=== PATIENT | female | born 1995 | race African-American/Black ===

== ENCOUNTER 2016-08-01 15:40 | Emergency (ER) | payer OTHER ==
--- NOTE | 2016-08-01 17:36 | XR ---
EXAMINATION TYPE: XR chest 2V DATE OF EXAM: 08/01/2016 5:30 PM COMPARISON: 06/06/2012 HISTORY: Chest congestion TECHNIQUE: Frontal and lateral views of the chest are obtained. FINDINGS: Heart and mediastinum are normal. Lungs are clear. Diaphragm is normal. Bony thorax is int act. IMPRESSION: Normal chest. No change.
--- NOTE | 2016-08-01 17:53 | ED ---
URI HPI - General Chief Complaint: Upper Respiratory Infection Stated Complaint: chest congestion coughing Time Seen by Provider: 08/01/16 17:08 Source: patient, RN notes reviewed Mode of arrival: ambulatory Limitations: no limitations - History of Present Illness Initial Comments: 20-year-old female presents emergency Department with chief complaint of cough and congestion or last 4 days. Patient states she just does not feel well. States her cough is slightly productive but mostly dry. She states she aches all over and has had subjective fevers chills. 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 - Related Data Home Medications Medication Instructions Recorded Confirmed No Known Home Medications [No 01/23/16 08/01/16 Known Home Medications] Allergies Allergy/AdvReac Type Severity Reaction Status Date / Time clarithromycin [From Biaxin] AdvReac Vomiting Verified 08/01/16 16:20 Review of Systems ROS Statement: Those systems with pertinent positive or pertinent negative responses have been documented in the HPI. ROS Other: All systems not noted in ROS Statement are negative. Past Medical History Past Medical History: Asthma Additional Past Medical History / Comment(s): ovarian cysts History of Any Multi-Drug Resistant Organisms: None Reported Past Surgical History: Appendectomy Past Psychological History: Anxiety, Depression Smoking Status: Never smoker Past Alcohol Use History: Occasional Past Drug Use History: None Reported General Exam Limitations: no limitations General appearance: alert, in no apparent distress Head exam: Present: atraumatic, normocephalic, normal inspection Eye exam: Present: normal appearance, PERRL, EOMI. Absent: scleral icterus, conjunctival injection, periorbital swelling ENT exam: Present: normal exam, normal oropharynx, mucous membranes moist, TM's normal bilaterally, normal external ear exam Neck exam: Present: normal inspection, full ROM. Absent: tenderness, meningismus, lymphadenopathy Respiratory exam: Present: normal lung sounds bilaterally. Absent: respiratory distress, wheezes, rales, rhonchi, stridor Cardiovascular Exam: Present: regular rate, normal rhythm, normal heart sounds. Absent: systolic murmur, diastolic murmur, rubs, gallop, clicks Course Vital Signs 08/01/16 08/01/16 16:17 17:26 Temperature 98.3 F Pulse Rate 91 Respiratory 18 20 Rate Blood Pressure 116/57 O2 Sat by Pulse 99 Oximetry Medical Decision Making - Medical Decision Making 20-year-old female presented for cough and congestion. Patient has influenza. Patient's symptoms have been present greater than 48 hours no Tamiflu. Return parameters were discussed. - Lab Data Lab Results 08/01/16 Range/Units 17:15 Influenza Type A RNA Not Detected (Not Detectd) Influenza Type B (PCR) Detected H (Not Detectd) Disposition Clinical Impression: Influenza Disposition: HOME SELF-CARE Condition: Stable Instructions: Influenza (ED) Additional Instructions: Please return to the Emergency Department if symptoms worsen or any other concerns. Referrals: Bebo Christie MD [Primary Care Provider] - 1-2 days Time of Disposition: 17:53
[2016-08-01 18:09] VITALS: BP 120/60; PULSE 70; RESP 16; TEMP 97.8
== END 2016-08-01 18:08 | disposition home or self-care (01) ==
LOC: EC 15:40
DX: J11.1 Influenza due to unidentified influenza virus with other respiratory manifestations (principal); Z88.1 Allergy status to other antibiotic agents
CPT/HCPCS: 71020; 87502; 99283

== ENCOUNTER → 2017-03-29 | Outpatient (CLI) | payer OTHER | LOC: CPPFTMAIN 13:10 | PROVIDERS: ATTEND Family Medicine | DX: J45.30 Mild persistent asthma, uncomplicated (principal) | CPT/HCPCS: 94060; 94726; 94729 ==

== ENCOUNTER 2017-05-11 19:25 | Emergency (ER) | payer OTHER ==
[2017-05-11] MEDS ORDERED: SODIUM CHLORIDE 0.9% 1,000 ML IV ONE (21:09)
--- NOTE | 2017-05-11 21:19 | ED ---
General Adult HPI - General Chief complaint: Recheck/Abnormal Lab/Rx Stated complaint: asthma problems/vomiting/confusion Time Seen by Provider: 05/11/17 20:57 Source: patient Mode of arrival: ambulatory Limitations: no limitations - History of Present Illness Initial comments: 21-year-old woman who presents to be evaluated for disorientation and confusion. The patient came home from work today, she works as a teacher, and her partner felt she was more fatigued than usual, and then in the course of talking she was not able to state the president's name. The patient does note that she had a few episodes of vomiting while at school. She states that she feels very fatigued and that she is a little bit sluggish. She denies any specific pains. She denies dyspnea. She does have a bit of a cough, but states this is been going on for few days. In addition she had an episode of bronchitis nearly 2 weeks ago and had a course of prednisone and is still taking the promethazine cough syrup. -: days(s) Improves with: none Worsens with: none Associated Symptoms: cough, malaise, nausea/vomiting Treatments Prior to Arrival: none - Related Data Home Medications Medication Instructions Recorded Confirmed Phenylephrine HCl/Prometh HCl 5 ml PO DAILY PRN 05/11/17 05/11/17 [Promethazine Vc Syrup] Allergies Allergy/AdvReac Type Severity Reaction Status Date / Time clarithromycin [From Biaxin] AdvReac Vomiting Verified 05/11/17 20:41 Review of Systems ROS Statement: Those systems with pertinent positive or pertinent negative responses have been documented in the HPI. ROS Other: All systems not noted in ROS Statement are negative. Constitutional: Reports: weakness. Denies: fever, chills Eyes: Denies: vision change Respiratory: Reports: cough. Denies: dyspnea, hemoptysis Cardiovascular: Denies: chest pain, palpitations, dyspnea on exertion, orthopnea , edema, syncope Gastrointestinal: Reports: nausea, vomiting. Denies: abdominal pain, diarrhea, melena, hematochezia Genitourinary: Denies: dysuria, hematuria, abnormal menses Musculoskeletal: Denies: back pain Skin: Denies: rash Neurological: Reports: confusion. Denies: headache, weakness, numbness Past Medical History Past Medical History: Asthma Additional Past Medical History / Comment(s): ovarian cysts History of Any Multi-Drug Resistant Organisms: None Reported Past Surgical History: Appendectomy Past Psychological History: Anxiety, Depression Smoking Status: Never smoker Past Alcohol Use History: Occasional Past Drug Use History: None Reported General Exam Limitations: no limitations General appearance: alert, in no apparent distress, obese Head exam: Present: atraumatic, normocephalic Eye exam: Present: normal appearance. Absent: scleral icterus, conjunctival injection ENT exam: Present: mucous membranes dry Neck exam: Present: normal inspection Respiratory exam: Present: normal lung sounds bilaterally. Absent: respiratory distress, wheezes, rales, rhonchi, stridor Cardiovascular Exam: Present: regular rate, normal rhythm, normal heart sounds. Absent: systolic murmur, diastolic murmur, rubs, gallop GI/Abdominal exam: Present: soft. Absent: distended, tenderness, guarding, rebound, rigid, mass Extremities exam: Present: normal inspection, normal capillary refill. Absent: pedal edema, calf tenderness Back exam: Present: normal inspection. Absent: CVA tenderness (R), CVA tenderness (L) Neurological exam: Present: alert, oriented X3, CN II-XII intact. Absent: motor sensory deficit Skin exam: Present: warm, dry, intact, normal color. Absent: rash Course Vital Signs 05/11/17 05/11/17 05/11/17 19:36 21:03 23:38 Temperature 97.9 F 97.3 F L Pulse Rate 94 66 70 Respiratory 20 20 18 Rate Blood Pressure 130/84 136/77 127/72 O2 Sat by Pulse 99 98 97 Oximetry 05/12/17 01:19 Temperature 97.5 F L Pulse Rate 81 Respiratory 18 Rate Blood Pressure 125/66 O2 Sat by Pulse 96 Oximetry EKG Findings - EKG Results: EKG: interpreted by RODNEY CUEVA, sinus rhythm (Rate approximate 72 bpm), normal axis, normal QRS, normal ST/T, no acute changes - [place], Pacemaker, Normal: Normal tracing: normal tracing Medical Decision Making - Medical Decision Making Patient is 21-year-old woman presenting with symptoms suggestive of viral syndrome. She does feel better following some IV fluids. Family states that she is at her baseline. Discussed the lab results as well as appropriate follow -up and further care related to the elevated transaminase levels. Discussed appropriate return parameters. - Lab Data Result diagrams: 05/11/17 21:45 01/24/18 21:45 Lab Results 05/11/17 05/11/17 05/11/17 Range/Units 21:38 21:45 21:45 WBC 10.4 (3.8-10.6) k/uL RBC 5.02 (3.80-5.40) m/uL Hgb 13.3 (11.4-16.0) gm/dL Hct 41.2 (34.0-46.0) % MCV 82.1 (80.0-100.0) fL MCH 26.5 (25.0-35.0) pg MCHC 32.3 (31.0-37.0) g/dL RDW 15.5 (11.5-15.5) % Plt Count 286 (150-450) k/uL Neutrophils % 73 % Lymphocytes % 23 % Monocytes % 2 % Eosinophils % 1 % Basophils % 1 % Neutrophils # 7.5 (1.3-7.7) k/uL Lymphocytes # 2.4 (1.0-4.8) k/uL Monocytes # 0.2 (0-1.0) k/uL Eosinophils # 0.1 (0-0.7) k/uL Basophils # 0.1 (0-0.2) k/uL PT (9.0-12.0) sec INR (<1.2) APTT (22.0-30.0) sec Sodium (137-145) mmol/L Potassium (3.5-5.1) mmol/L Chloride (98-107) mmol/L Carbon Dioxide (22-30) mmol/L Anion Gap mmol/L BUN (7-17) mg/dL Creatinine (0.52-1.04) mg/dL Est GFR (MDRD) Af Amer (>60 ml/min/1.73 sqM) Est GFR (MDRD) Non-Af (>60 ml/min/1.73 sqM) Glucose (74-99) mg/dL POC Glucose (mg/dL) 123 H (75-99) mg/dL POC Glu Pearl Diver ID Arenleah Oj Plasma Lactic Acid Raman (0.7-2.0) mmol/L Calcium (8.4-10.2) mg/dL Total Bilirubin (0.2-1.3) mg/dL AST (14-36) U/L ALT (9-52) U/L Alkaline Phosphatase (38-126) U/L Total Creatine Kinase 88 (30-135) U/L CK-MB (CK-2) 0.3 (0.0-2.4) ng/mL CK-MB (CK-2) Rel Index 0.3 Troponin I <0.012 (0.000-0.034) ng/mL Total Protein (6.3-8.2) g/dL Albumin (3.5-5.0) g/dL TSH (0.465-4.680) mIU/L Urine Color Urine Appearance (Clear) Urine pH (5.0-8.0) Ur Specific [place] (1.001-1.035) Urine Protein (Negative) Urine Glucose (UA) (Negative) Urine Ketones (Negative) Urine Blood (Negative) Urine Nitrite (Negative) Urine Bilirubin (Negative) Urine Urobilinogen (<2.0) mg/dL Ur Leukocyte Esterase (Negative) Urine RBC (0-5) /hpf Urine WBC (0-5) /hpf Ur Squamous Epith Cells (0-4) /hpf Amorphous Sediment (None) /hpf Urine Bacteria (None) /hpf Urine HCG, Qual (Not Detectd) Urine Opiates Screen (NotDetected) Ur Oxycodone Screen (NotDetected) Urine Methadone Screen (NotDetected) Ur Propoxyphene Screen (NotDetected) Ur Barbiturates Screen (NotDetected) U Tricyclic Antidepress (NotDetected) Ur Phencyclidine Scrn (NotDetected) Ur Amphetamines Screen (NotDetected) U Methamphetamines Scrn (NotDetected) U Benzodiazepines Scrn (NotDetected) Urine Cocaine Screen (NotDetected) U Marijuana (THC) Screen (NotDetected) 05/11/17 05/11/17 05/11/17 Range/Units 21:45 21:45 21:45 WBC (3.8-10.6) k/uL RBC (3.80-5.40) m/uL Hgb (11.4-16.0) gm/dL Hct (34.0-46.0) % MCV (80.0-100.0) fL MCH (25.0-35.0) pg MCHC (31.0-37.0) g/dL RDW (11.5-15.5) % Plt Count (150-450) k/uL Neutrophils % % Lymphocytes % % Monocytes % % Eosinophils % % Basophils % % Neutrophils # (1.3-7.7) k/uL Lymphocytes # (1.0-4.8) k/uL Monocytes # (0-1.0) k/uL Eosinophils # (0-0.7) k/uL Basophils # (0-0.2) k/uL PT 9.7 (9.0-12.0) sec INR 1.0 (<1.2) APTT 22.3 (22.0-30.0) sec Sodium 140 (137-145) mmol/L Potassium 4.5 (3.5-5.1) mmol/L Chloride 103 (98-107) mmol/L Carbon Dioxide 26 (22-30) mmol/L Anion Gap 11 mmol/L BUN 11 (7-17) mg/dL Creatinine 0.70 (0.52-1.04) mg/dL Est GFR (MDRD) Af Amer >60 (>60 ml/min/1.73 sqM) Est GFR (MDRD) Non-Af >60 (>60 ml/min/1.73 sqM) Glucose 130 H (74-99) mg/dL POC Glucose (mg/dL) (75-99) mg/dL POC Glu Pearl Diver ID Plasma Lactic Acid Raman 1.2 (0.7-2.0) mmol/L Calcium 9.9 (8.4-10.2) mg/dL Total Bilirubin 0.3 (0.2-1.3) mg/dL AST 39 H (14-36) U/L ALT 95 H (9-52) U/L Alkaline Phosphatase 72 (38-126) U/L Total Creatine Kinase (30-135) U/L CK-MB (CK-2) (0.0-2.4) ng/mL CK-MB (CK-2) Rel Index Troponin I (0.000-0.034) ng/mL Total Protein 7.4 (6.3-8.2) g/dL Albumin 4.3 (3.5-5.0) g/dL TSH (0.465-4.680) mIU/L Urine Color Urine Appearance (Clear) Urine pH (5.0-8.0) Ur Specific [place] (1.001-1.035) Urine Protein (Negative) Urine Glucose (UA) (Negative) Urine Ketones (Negative) Urine Blood (Negative) Urine Nitrite (Negative) Urine Bilirubin (Negative) Urine Urobilinogen (<2.0) mg/dL Ur Leukocyte Esterase (Negative) Urine RBC (0-5) /hpf Urine WBC (0-5) /hpf Ur Squamous Epith Cells (0-4) /hpf Amorphous Sediment (None) /hpf Urine Bacteria (None) /hpf Urine HCG, Qual (Not Detectd) Urine Opiates Screen (NotDetected) Ur Oxycodone Screen (NotDetected) Urine Methadone Screen (NotDetected) Ur Propoxyphene Screen (NotDetected) Ur Barbiturates Screen (NotDetected) U Tricyclic Antidepress (NotDetected) Ur Phencyclidine Scrn (NotDetected) Ur Amphetamines Screen (NotDetected) U Methamphetamines Scrn (NotDetected) U Benzodiazepines Scrn (NotDetected) Urine Cocaine Screen (NotDetected) U Marijuana (THC) Screen (NotDetected) 05/11/17 05/11/17 05/11/17 Range/Units 21:45 21:45 22:40 WBC (3.8-10.6) k/uL RBC (3.80-5.40) m/uL Hgb (11.4-16.0) gm/dL Hct (34.0-46.0) % MCV (80.0-100.0) fL MCH (25.0-35.0) pg MCHC (31.0-37.0) g/dL RDW (11.5-15.5) % Plt Count (150-450) k/uL Neutrophils % % Lymphocytes % % Monocytes % % Eosinophils % % Basophils % % Neutrophils # (1.3-7.7) k/uL Lymphocytes # (1.0-4.8) k/uL Monocytes # (0-1.0) k/uL Eosinophils # (0-0.7) k/uL Basophils # (0-0.2) k/uL PT (9.0-12.0) sec INR (<1.2) APTT (22.0-30.0) sec Sodium (137-145) mmol/L Potassium (3.5-5.1) mmol/L Chloride (98-107) mmol/L Carbon Dioxide (22-30) mmol/L Anion Gap mmol/L BUN (7-17) mg/dL Creatinine (0.52-1.04) mg/dL Est GFR (MDRD) Af Amer (>60 ml/min/1.73 sqM) Est GFR (MDRD) Non-Af (>60 ml/min/1.73 sqM) Glucose (74-99) mg/dL POC Glucose (mg/dL) (75-99) mg/dL POC Glu Pearl Diver ID Plasma Lactic Acid Raman (0.7-2.0) mmol/L Calcium (8.4-10.2) mg/dL Total Bilirubin (0.2-1.3) mg/dL AST (14-36) U/L ALT (9-52) U/L Alkaline Phosphatase (38-126) U/L Total Creatine Kinase (30-135) U/L CK-MB (CK-2) (0.0-2.4) ng/mL CK-MB (CK-2) Rel Index Troponin I (0.000-0.034) ng/mL Total Protein (6.3-8.2) g/dL Albumin (3.5-5.0) g/dL TSH 1.720 (0.465-4.680) mIU/L Urine Color Light Yellow Urine Appearance Clear (Clear) Urine pH 7.5 (5.0-8.0) Ur Specific [place] 1.005 (1.001-1.035) Urine Protein Negative (Negative) Urine Glucose (UA) Negative (Negative) Urine Ketones Negative (Negative) Urine Blood Negative (Negative) Urine Nitrite Negative (Negative) Urine Bilirubin Negative (Negative) Urine Urobilinogen <2.0 (<2.0) mg/dL Ur Leukocyte Esterase Trace H (Negative) Urine RBC <1 (0-5) /hpf Urine WBC 1 (0-5) /hpf Ur Squamous Epith Cells 1 (0-4) /hpf Amorphous Sediment Rare H (None) /hpf Urine Bacteria Rare H (None) /hpf Urine HCG, Qual Not Detected (Not Detectd) Urine Opiates Screen Not Detected (NotDetected) Ur Oxycodone Screen Not Detected (NotDetected) Urine Methadone Screen Not Detected (NotDetected) Ur Propoxyphene Screen Not Detected (NotDetected) Ur Barbiturates Screen Not Detected (NotDetected) U Tricyclic Antidepress Not Detected (NotDetected) Ur Phencyclidine Scrn Not Detected (NotDetected) Ur Amphetamines Screen Not Detected (NotDetected) U Methamphetamines Scrn Not Detected (NotDetected) U Benzodiazepines Scrn Not Detected (NotDetected) Urine Cocaine Screen Not Detected (NotDetected) U Marijuana (THC) Screen Not Detected (NotDetected) Disposition Clinical Impression: Viral syndrome, Delirium, Elevated transaminase measurement Disposition: HOME SELF-CARE Condition: Good Instructions: Acute Delirium (ED), Viral Syndrome (ED) Additional Instructions: As discussed, follow-up to have the transaminase levels rechecked. Referrals: Allegra Moe MD [Primary Care Provider] - 1-2 days Denise East MD [STAFF PHYSICIAN] - 1-2 days
[2017-05-11 21:57] LABS: Glucose,Whole Blood 123 mg/dL (75-99)
[2017-05-11 22:02] LABS: Basophils # (A) 0.1 k/uL (0-0.2); Basophils % (A) 1 %; Eosinophils # (A) 0.1 k/uL (0-0.7); Eosinophils % (A) 1 %; HCT 41.2 % (34.0-46.0); HGB 13.3 gm/dL (11.4-16.0); Lymphocytes # (A) 2.4 k/uL (1.0-4.8); Lymphocytes % (A) 23 %; MCH 26.5 pg (25.0-35.0); MCHC 32.3 g/dL (31.0-37.0); MCV 82.1 fL (80.0-100.0); Mean Platelet Volume 7.8; Monocytes # (A) 0.2 k/uL (0-1.0); Monocytes % (A) 2 %; Neutrophils # (A) 7.5 k/uL (1.3-7.7); Neutrophils % (A) 73 %; Platelet Count 286 k/uL (150-450); RBC 5.02 m/uL (3.80-5.40); RDW 15.5 % (11.5-15.5); WBC 10.4 k/uL (3.8-10.6)
[2017-05-11 22:12] LABS: Prothrombin Time 9.7 sec (9.0-12.0)
[2017-05-11 22:14] LABS: ALT 95 U/L (9-52); AST 39 U/L (14-36); Albumin 4.3 g/dL (3.5-5.0); Alkaline Phosphatase 72 U/L (38-126); Anion Gap 11 mmol/L; Blood Urea Nitrogen 11 mg/dL (7-17); Calcium 9.9 mg/dL (8.4-10.2); Carbon Dioxide 26 mmol/L (22-30); Chloride 103 mmol/L (98-107); Glucose 130 mg/dL (74-99); Sodium 140 mmol/L (137-145); Total Bilirubin 0.3 mg/dL (0.2-1.3); Total Protein 7.4 g/dL (6.3-8.2)
[2017-05-11 22:19] LABS: Partial Thromboplastin Time 22.3 sec (22.0-30.0)
--- NOTE | 2017-05-11 22:22 | XR ---
EXAMINATION: XR chest 1V portable DATE AND TIME: 05/11/2017 10:09 PM ORDERING PROVIDER: Sulaiman Wild MD CLINICAL INDICATION: altered mental status TECHNIQUE: Frontal COMPARISON: 08/01/2016 DESCRIPTION: The lungs are clear. The pleural spaces are negative. The cardiac silhouette is not enlarged. The mediastinal and pleural silhouettes are unremarkable. The skeletal structures are intact without focal findings. The soft tissues are unremarkable. IMPRESSION: NO ACUTE PROCESS.
[2017-05-11 22:30] LABS: Potassium 4.5 mmol/L (3.5-5.1)
[2017-05-11 22:34] LABS: Creatine Kinase 88 U/L (30-135)
[2017-05-11 22:47] LABS: Creatine Kinase MB 0.3 ng/mL (0.0-2.4); Troponin I <0.012 ng/mL (0.000-0.034)
[2017-05-11 22:58] LABS: Amorphous Sediment,Urine Rare /hpf; Appearance,Urine Clear (Clear); Bacteria,Urine Rare /hpf; Bilirubin,Urine Negative (Negative); Blood,Urine Negative (Negative); Color,Urine Light Yellow; Glucose,Urine (UA) Negative (Negative); Ketones,Urine Negative (Negative); Leukocyte Esterase,Urine Trace (Negative); Nitrite,Urine Negative (Negative); PH, Urine 7.5 (5.0-8.0); Protein,Urine Negative (Negative); RBC,Urine <1 /hpf (0-5); Specific Gravity,Urine 1.005 (1.001-1.035); Squamous Epithelial Cell,Urine 1 /hpf (0-4); Urobilinogen,Urine <2.0 mg/dL (<2.0); WBC,Urine 1 /hpf (0-5)
[2017-05-11 23:07] LABS: Amphetamine Screen,Urine Not Detected (NotDetected); Barbiturate Screen,Urine Not Detected (NotDetected); Benzodiazepines Screen,Urine Not Detected (NotDetected); Cocaine Screen,Urine Not Detected (NotDetected); Methadone Screen, Urine Not Detected (NotDetected); Opiate Screen,Urine Not Detected (NotDetected); Oxycodone Screen, Urine Not Detected (NotDetected); Phencyclidine Screen,Urine Not Detected (NotDetected); Tricyclic Antidepressant,Urine Not Detected (NotDetected); Urn Cannabinoid Scrn Not Detected (NotDetected)
--- NOTE | 2017-05-11 23:33 | CT ---
EXAM: CT Head Without Intravenous Contrast CLINICAL HISTORY: Reason: Pain TECHNIQUE: Axial computed tomography images of the head/brain without intravenous contrast. CTDI is 60.30 mGy and DLP is 1072.30 mGy-cm. This CT exam was performed using one or more of the following dose reduction techniques: automated exposure control, adjustment of the mA and/or kV according to patient size, and/or use of iterative reconstruction technique. COMPARISON: No relevant prior studies available. FINDINGS: Brain: Unremarkable. No hemorrhage. No significant white matter disease. No edema. Ventricles: Unremarkable. No ventriculomegaly. Bones/joints: Opacification of the right maxillary sinus. Partial visualization of a bony septum in the right maxillary sinus which may be an old fracture deformity. Soft tissues: Unremarkable. Sinuses: Unremarkable as visualized. No acute sinusitis. Mastoid air cells: Unremarkable as visualized. No mastoid effusion. IMPRESSION: No acute intracranial process. Left maxillary sinusitis noted. Correlate clinically for history of old maxillary trauma.
[2017-05-11 23:40] VITALS: RESP 18
[2017-05-12 01:21] VITALS: BP 125/66; PULSE 81; TEMP 97.5
== END 2017-05-12 01:21 | disposition home or self-care (01) ==
LOC: EC 19:25
DX: B34.9 Viral infection, unspecified (principal); R41.0 Disorientation, unspecified; R74.0 Nonspecific elevation of levels of transaminase and lactic acid dehydrogenase [LDH]; E66.9 Obesity, unspecified; Z68.43 Body mass index [BMI] 50.0-59.9, adult; Z88.1 Allergy status to other antibiotic agents
CPT/HCPCS: 36415; 70450; 71045; 80053; 80306; 81001; 81025; 82550; 82553; 83605; 84443; 84484; 85025; 85610; 85730; 93005; 96360; 99285

== ENCOUNTER → 2017-06-14 | Outpatient (CLI) | payer OTHER ==
[2017-06-14 16:37] LABS: Albumin 4.3 g/dL (3.5-5.0); Bilirubin, Delta 0.4 mg/dL (0.0-0.2); Total Bilirubin 0.4 mg/dL (0.2-1.3); Total Protein 7.6 g/dL (6.3-8.2)
== END | disposition home or self-care (01) ==
LOC: LABWHC1 16:00
PROVIDERS: ATTEND Family Medicine
DX: R74.8 Abnormal levels of other serum enzymes (principal)
CPT/HCPCS: 36415; 80076

== ENCOUNTER 2018-04-21 16:39 | Emergency (ER) | payer OTHER ==
[2018-04-21 17:22] VITALS: BP 104/69; PULSE 85; RESP 18; TEMP 98.2
[2018-04-21] MEDS ORDERED: ACET/COD 300 MG/30 MG STARTER PACK 6 TAB BTL PO STA (17:57)
--- NOTE | 2018-04-21 18:02 | ED ---
Lower Extremity Injury HPI - General Chief Complaint: Extremity Injury, Lower Stated Complaint: Knee Pain/Injury Time Seen by Provider: 04/21/18 17:42 Source: patient Mode of arrival: wheelchair Limitations: no limitations - History of Present Illness Initial Comments: 22-year-old female patient presents to the emergency department today for evaluation of left knee pain and instability. Patient states couple of hours ago she was trying to get up into a chair when she felt her knee "pop" and shift to the lateral side in a varus type fashion. She states after the injury she had sudden onset of pain to the anterior knee. She states when she tries to stand on the knee she has increased pain feels like it's going to give out on her. Patient denies any previous injury to the knee. States this has some tingling to her left foot. States that she did fall when she attempted to walk. She denies hitting her head or losing consciousness. She denies any other injuries. Patient denies any headache, neck pain, back pain, chest pain, shortness of breath, dizziness, weakness, abdominal pain, nausea, vomiting, or difficulties with bowel movements or urination. - Related Data Home Medications Medication Instructions Recorded Confirmed Phenylephrine HCl/Prometh HCl 5 ml PO DAILY PRN 05/11/17 05/11/17 [Promethazine Vc Syrup] Previous Rx's Medication Instructions Recorded Ibuprofen [Motrin] 600 mg PO Q8HR PRN #30 tab 04/21/18 Allergies Allergy/AdvReac Type Severity Reaction Status Date / Time clarithromycin [From Biaxin] AdvReac Vomiting Verified 04/21/18 17:22 Review of Systems ROS Statement: Those systems with pertinent positive or pertinent negative responses have been documented in the HPI. ROS Other: All systems not noted in ROS Statement are negative. Past Medical History Past Medical History: Asthma Additional Past Medical History / Comment(s): ovarian cysts History of Any Multi-Drug Resistant Organisms: None Reported Past Surgical History: Appendectomy Past Psychological History: Anxiety, Depression Smoking Status: Never smoker Past Alcohol Use History: Occasional Past Drug Use History: None Reported General Exam Limitations: no limitations General appearance: alert, in no apparent distress, other (Physical well- developed, well-nourished adult female patient in no acute distress. Vital signs upon presentation are temperature 98.2F, pulse 85, respirations 18, blood pressure 104/69, pulse ox 100% on room air.) Neck exam: Present: normal inspection, full ROM, other (Nontender, no step-off, no deformity to firm midline palpation of the posterior cervical spine. Full range of motion without pain or limitation.). Absent: tenderness, meningismus, lymphadenopathy Respiratory exam: Present: normal lung sounds bilaterally. Absent: respiratory distress, wheezes, rales, rhonchi, stridor Cardiovascular Exam: Present: regular rate, normal rhythm, normal heart sounds. Absent: systolic murmur, diastolic murmur, rubs, gallop, clicks Extremities exam: Present: normal inspection, full ROM (Full extension and full flexion without difficulty), tenderness (Tenderness over the left anterior knee) , normal capillary refill, other (Skin to the left lower extremities pink, warm , dry. Cap refills less than 3 seconds. Pedal and posttibial pulses are 2+ and equal bilaterally.). Absent: pedal edema, joint swelling, calf tenderness Neurological exam: Present: alert, oriented X3, CN II-XII intact Psychiatric exam: Present: normal affect, normal mood Skin exam: Present: warm, dry, intact, normal color. Absent: rash Course Vital Signs 04/21/18 17:19 Temperature 98.2 F Pulse Rate 85 Respiratory 18 Rate Blood Pressure 104/69 O2 Sat by Pulse 100 Oximetry Medical Decision Making - Medical Decision Making 22-year-old female patient presents to the emergency department today for complaints of left knee pain and instability. Physical examination did reveal tenderness over the left anterior knee. She have increased pain with valgus maneuver. No laxity. She had full range of motion. X-ray showed no acute process. She'll be placed in a knee immobilizer and instructed to follow-up with orthopedics for further evaluation. She'll be given ibuprofen for pain control. She is educated regarding ice and elevation. Return parameters were discussed in detail. She verbalizes understanding and agrees with this plan. - Radiology Data Radiology results: report reviewed, image reviewed 4 view x-ray of the left knee was obtained. Report was reviewed in its entirety. Impression by Dr. Sanchez shows negative left knee exam. Disposition Clinical Impression: Strain of left knee Disposition: HOME SELF-CARE Condition: Good Instructions: Knee Sprain (ED) Additional Instructions: Rest, ice, elevate the left knee. Use knee immobilizer when up walking. Follow up with orthopedics for further evaluation as soon as possible. Take pain medication as directed. Return immediately for any new, worsening, or concerning symptoms. Prescriptions: Ibuprofen [Motrin] 600 mg PO Q8HR PRN #30 tab PRN Reason: Pain Is patient prescribed a controlled substance at d/c from ED?: No Referrals: Allegra Moe MD [Primary Care Provider] - 1-2 days Vargas Merchant MD [STAFF PHYSICIAN] - 1-2 days Time of Disposition: 18:33
--- NOTE | 2018-04-21 18:29 | XR ---
EXAMINATION TYPE: XR knee complete LT DATE OF EXAM: 04/21/2018 COMPARISON: NONE HISTORY: Knee pain TECHNIQUE: 4 views FINDINGS: I see no fracture nor dislocation. Joint spaces are normal. There is no sign of knee joint effusion. IMPRESSION: Negative left knee exam.
== END 2018-04-21 18:58 | disposition home or self-care (01) ==
LOC: EC 16:39
DX: S86.912A Strain of unspecified muscle(s) and tendon(s) at lower leg level, left leg, initial encounter (principal); Z88.1 Allergy status to other antibiotic agents; W19.XXXA Unspecified fall, initial encounter
CPT/HCPCS: 99283

== ENCOUNTER 2019-12-07 22:53 | Emergency (ER) | payer OTHER ==
--- NOTE | 2019-12-07 23:42 | ED ---
Lower Extremity Injury HPI - General Chief Complaint: Extremity Injury, Lower Stated Complaint: rt ankle injury Time Seen by Provider: 12/07/19 23:09 Source: patient Mode of arrival: wheelchair Limitations: no limitations - History of Present Illness Initial Comments: This patient is a 24-year-old woman who presents to have evaluation of her foot after an injury. The patient states she had been at a friend's home, walking on the porch. She states that she stepped on a board and went through the board falling short distance. She states her fall was stopped by a rug that was overlying the board. She in the cage pain to the lateral aspect of the right foot and then also closer to the ankle. No previous injury or surgery. MD Complaint: foot injury Onset/Timin -: hour(s) Place: home Severity: moderate Improves With: nothing Worsens With: weight bearing, palpation Context: fall Associated Symptoms: swelling, able to partially bear weight - Related Data Home Medications Medication Instructions Recorded Confirmed Phenylephrine HCl/Prometh HCl 5 ml PO DAILY PRN 05/11/17 05/11/17 [Promethazine Vc Syrup] Previous Rx's Medication Instructions Recorded Ibuprofen [Motrin] 600 mg PO Q8HR PRN #30 tab 04/21/18 Ibuprofen [Motrin] 600 mg PO Q8HR PRN #20 tab 12/07/19 Allergies Allergy/AdvReac Type Severity Reaction Status Date / Time clarithromycin [From Biaxin] AdvReac Vomiting Verified 12/07/19 22:59 Review of Systems ROS Statement: Those systems with pertinent positive or pertinent negative responses have been documented in the HPI. ROS Other: All systems not noted in ROS Statement are negative. Musculoskeletal: Reports: as per HPI, arthralgia Skin: Denies: lesions Neurological: Denies: weakness, numbness, paresthesias Past Medical History Past Medical History: Asthma Additional Past Medical History / Comment(s): ovarian cysts History of Any Multi-Drug Resistant Organisms: None Reported Past Surgical History: Appendectomy Past Psychological History: Anxiety, Depression Smoking Status: Never smoker Past Alcohol Use History: Occasional Past Drug Use History: None Reported General Exam Limitations: no limitations General appearance: alert, in no apparent distress Cardiovascular Exam: Present: other (Dorsalis pedis pulse is strong and symmetric. Normal capillary refill throughout the foot.) Right Knee exam: Present: normal inspection, full ROM. Absent: tenderness, swelling Lower Leg exam: Present: normal inspection, full ROM. Absent: tenderness, swelling Ankle exam: Present: normal inspection, full ROM. Absent: tenderness, swelling Foot/Toe exam: Present: normal inspection, tenderness. Absent: abrasion, laceration, ecchymosis, deformity, crepitus, dislocation, puncture wound, foreign body, calcaneal tenderness Neurovascular tendon exam: Present: no vascular compromise. Absent: pallor, abnormal 2-point discrimination, decreased fine/light touch, foot drop, significant pain with passive ROM of distal joint Neurological exam: Absent: motor sensory deficit (Throughout the right foot) Skin exam: Present: warm, dry, intact, normal color. Absent: rash Course Vital Signs 12/07/19 22:57 Temperature 98.3 F Pulse Rate 95 Respiratory 20 Rate Blood Pressure 137/83 O2 Sat by Pulse 99 Oximetry Disposition Clinical Impression: Right foot injury Disposition: HOME SELF-CARE Condition: Good Instructions (If sedation given, give patient instructions): Foot Sprain (ED) Prescriptions: Ibuprofen [Motrin] 600 mg PO Q8HR PRN #20 tab PRN Reason: Pain Is patient prescribed a controlled substance at d/c from ED?: No Referrals: Allegra Moe MD [Primary Care Provider] - 1-2 days
--- NOTE | 2019-12-07 23:42 | XR ---
EXAMINATION TYPE: XR ankle complete RT DATE OF EXAM: 12/07/2019 COMPARISON: NONE HISTORY: Ankle pain TECHNIQUE: 3 views FINDINGS: There is intact ankle mortise. I see no fracture nor dislocation. Joint spaces are fairly n ormal. There are small plantar calcaneal spur. IMPRESSION: No acute abnormality of the right ankle.
--- NOTE | 2019-12-07 23:46 | XR ---
EXAMINATION TYPE: XR foot complete RT DATE OF EXAM: 12/07/2019 COMPARISON: NONE HISTORY: Ankle pain. Foot pain TECHNIQUE: 3 views FINDINGS: Metatarsals are intact. I see no fracture nor dislocation. Joint spaces are normal. IMPRESSION: Negative right foot exam. No fracture.
[2019-12-08 00:17] VITALS: BP 130/77; PULSE 91; RESP 16; TEMP 98.2
== END 2019-12-08 00:10 | disposition home or self-care (01) ==
LOC: EC 22:53
DX: S99.921A Unspecified injury of right foot, initial encounter (principal); Z88.1 Allergy status to other antibiotic agents; W18.31XA Fall on same level due to stepping on an object, initial encounter; Y93.01 Activity, walking, marching and hiking; Y92.89 Other specified places as the place of occurrence of the external cause
CPT/HCPCS: 99283

== ENCOUNTER → 2019-12-26 | Outpatient (CLI) | payer OTHER ==
--- NOTE | 2019-12-26 10:42 | CT ---
EXAMINATION TYPE: CT ankle RT wo con DATE OF EXAM: 12/26/2019 COMPARISON: X-ray 12/07/2019 HISTORY: Injury 3-4 weeks ago with continued pain. CT DLP: 275 mGycm FINDINGS: Ankle mortise is intact and symmetric. Visualized osseous structures are intact. There is a tiny bone island involving the calcaneus. Small calcaneal spur noted. Next line there is soft tissue edema along the lateral margin of the foot. No acute fracture or dislocation. IMPRESSION: 1. No acute fracture or dislocation. Soft tissue edema noted. If there is concern for ligamentous or tendinous injury correlate with MRI. 2. Calcaneal spurs.
== END | disposition home or self-care (01) ==
LOC: RADCTMAIN 10:07
PROVIDERS: ATTEND Orthopaedic Surgery Sports Medicine
DX: R60.9 Edema, unspecified (principal); M77.31 Calcaneal spur, right foot

== ENCOUNTER 2020-05-19 19:51 | Emergency (ER) | payer OTHER ==
[2020-05-19 19:59] VITALS: RESP 18
[2020-05-19 20:51] LABS: Appearance,Urine Cloudy (Clear); Bilirubin,Urine Negative (Negative); Blood,Urine Negative (Negative); Color,Urine Yellow; Glucose,Urine (UA) Negative (Negative); Ketones,Urine 1+ (Negative); Leukocyte Esterase,Urine Small (Negative); Mucus,Urine Occasional /hpf; Nitrite,Urine Negative (Negative); PH, Urine 6.5 (5.0-8.0); Protein,Urine Trace (Negative); RBC,Urine 1 /hpf (0-5); Squamous Epithelial Cell,Urine 6 /hpf (0-4); Urobilinogen,Urine <2.0 mg/dL (<2.0); WBC,Urine 4 /hpf (0-5)
[2020-05-19] MEDS ORDERED: ORPHENADRINE 30 MG/ML 2 ML VIAL IM STA (20:53)
[2020-05-19] MEDS ORDERED: KETOROLAC 15 MG/ML 1 ML VIAL IM STA (20:53)
--- NOTE | 2020-05-19 20:53 | ED ---
General Adult HPI - General Chief complaint: Back Pain/Injury Stated complaint: Back pain Source: patient, RN notes reviewed Mode of arrival: wheelchair Limitations: no limitations - History of Present Illness Initial comments: 24-year-old morbidly obese female with a past medical history of ovarian cysts, asthma, appendectomy presents to the emergency department for a chief complaint of right mid back pain. 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 She was reaching for a chair today to sit down and felt a sudden pain in her back. States that throughout the evening and has worsened. She states that when she went to get off the toilet she felt she could not stand up straight because of this pain. States bending and twisting worsen the pain. States it feels better to lie on her abdomen and worse to lie on her back. Patient denies any bladder or bowel changes, numbness or tingling of the greater buttock, weakness of the legs, or radiating pain down the legs. No fevers. Patient denies urinary symptoms however does admit to cloudy urine. Patient's friend wanted her to be evaluated rather than "wait it out." Patient has not taken anything for pain.Patient has no other complaints at this time including shortness of breath, chest pain, abdominal pain, nausea or vomiting, headache, or visual changes. - Related Data Home Medications Medication Instructions Recorded Confirmed Eletriptan HBr [Relpax] 40 mg PO DAILY PRN 05/19/20 05/19/20 Ergocalciferol (Vitamin D2) 1,250 mcg PO COLEY 05/19/20 05/19/20 [Vitamin D2 (50,000 Iu)] Escitalopram [Lexapro] 20 mg PO HS 05/19/20 05/19/20 Propranolol HCl 10 mg PO BID 05/19/20 05/19/20 busPIRone HCl [Buspar] 10 mg PO BID 05/19/20 05/19/20 Previous Rx's Medication Instructions Recorded Cyclobenzaprine [Flexeril] 10 mg PO TID #14 tab 05/19/20 Allergies Allergy/AdvReac Type Severity Reaction Status Date / Time clarithromycin [From Biaxin] AdvReac Vomiting Verified 05/19/20 20:33 Review of Systems ROS Statement: Those systems with pertinent positive or pertinent negative responses have been documented in the HPI. ROS Other: All systems not noted in ROS Statement are negative. Past Medical History Past Medical History: Asthma Additional Past Medical History / Comment(s): ovarian cysts History of Any Multi-Drug Resistant Organisms: None Reported Past Surgical History: Appendectomy Past Psychological History: Anxiety, Depression Smoking Status: Never smoker Past Alcohol Use History: Occasional Past Drug Use History: None Reported General Exam Limitations: no limitations General appearance: alert, in no apparent distress, other (Sitting in bed, morbidly obese) Head exam: Present: atraumatic Eye exam: Present: normal appearance, PERRL, EOMI. Absent: scleral icterus ENT exam: Present: normal exam, mucous membranes moist Neck exam: Present: normal inspection, full ROM. Absent: tenderness Respiratory exam: Present: normal lung sounds bilaterally. Absent: respiratory distress, wheezes Cardiovascular Exam: Present: regular rate, normal rhythm, normal heart sounds GI/Abdominal exam: Present: soft, normal bowel sounds. Absent: distended, tenderness (No abdominal tenderness), guarding, rebound, rigid Back exam: Present: paraspinal tenderness (Right-sided paraspinal tenderness Along the thoracolumbar area. No external signs of trauma. No ecchymosis.). Absent: CVA tenderness (R), CVA tenderness (L), vertebral tenderness Neurological exam: Present: alert Course Vital Signs 05/19/20 19:55 Temperature 98.3 F Pulse Rate 79 Respiratory 18 Rate Blood Pressure 129/87 O2 Sat by Pulse 98 Oximetry Medical Decision Making - Medical Decision Making Vitals are stable. Exam is pertinent for tenderness along the paraspinal area. No CVA tenderness. Pain worsens with movement and patient is unable to extend the lumbar spine completely. She is able to ambulate. Urinalysis obtained did not show evidence of infection or blood. Patient symptoms are consistent with musculoskeletal back pain given movement worsens the pain and there is tenderness. Symptoms are reproducible. Patient remembers reaching forward and feeling sudden pain. No red flag symptoms. At this time patient be given Toradol and Norflex. She is given a note for tomorrow for work. She will continue Motrin and Tylenol at home and take Flexeril at night. She is aware not to drive or operate machinery while taking this. Recommended she follow up with her doctor and return for any worsening symptoms. I discussed this case with attending Dr. Hancock who agrees with this assessment and treatment plan. - Lab Data Lab Results 05/19/20 05/19/20 Range/Units 20:45 20:45 Urine Color Yellow Urine Appearance Cloudy H (Clear) Urine pH 6.5 (5.0-8.0) Ur Specific [place] 1.030 (1.001-1.035) Urine Protein Trace H (Negative) Urine Glucose (UA) Negative (Negative) Urine Ketones 1+ H (Negative) Urine Blood Negative (Negative) Urine Nitrite Negative (Negative) Urine Bilirubin Negative (Negative) Urine Urobilinogen <2.0 (<2.0) mg/dL Ur Leukocyte Esterase Small H (Negative) Urine RBC 1 (0-5) /hpf Urine WBC 4 (0-5) /hpf Ur Squamous Epith Cells 6 H (0-4) /hpf Urine Mucus Occasional H (None) /hpf Urine HCG, Qual Not Detected (Not Detectd) Disposition Clinical Impression: Mechanical back pain Disposition: HOME SELF-CARE Condition: Good Instructions (If sedation given, give patient instructions): Acute Low Back Pain (ED) Additional Instructions: Please take Motrin and Tylenol for pain. You can alternate these every 3 hours. Be sure to do gentle stretching as becoming immobile may cause worsening spasms. Take Flexeril as needed however do not take this while driving or working. Return to the emergency room for any worsening symptoms. Otherwise follow-up with your doctor. Prescriptions: Cyclobenzaprine [Flexeril] 10 mg PO TID #14 tab Is patient prescribed a controlled substance at d/c from ED?: No Referrals: Allegra Moe MD [Primary Care Provider] - 1-2 days Time of Disposition: 21:29
[2020-05-19 21:42] VITALS: BP 131/82; PULSE 71; TEMP 98.2
== END 2020-05-19 21:41 | disposition home or self-care (01) ==
LOC: EC 19:51
DX: M54.9 Dorsalgia, unspecified (principal); F41.9 Anxiety disorder, unspecified; F32.9 Major depressive disorder, single episode, unspecified; E66.01 Morbid (severe) obesity due to excess calories; Z68.44 Body mass index [BMI] 60.0-69.9, adult; Z79.899 Other long term (current) drug therapy; Z88.1 Allergy status to other antibiotic agents
CPT/HCPCS: 81001; 81025; 99283; 96372 ×2; J2360; J1885

== ENCOUNTER 2020-08-04 22:56 | Emergency (ER) | payer OTHER ==
[2020-08-04 23:38] VITALS: RESP 18; TEMP 98.9
[2020-08-05] MEDS ORDERED: SODIUM CHLORIDE 0.9% 500 ML 500 ML IV STA (02:47)
[2020-08-05] MEDS ORDERED: diphenhydrAMINE 50 MG/ML 1 ML VIAL IVP STA (02:47)
[2020-08-05] MEDS ORDERED: METOCLOPRAMIDE 5 MG/ML 2 ML VIAL IVP STA (02:47)
[2020-08-05] MEDS ORDERED: KETOROLAC 15 MG/ML 1 ML VIAL IVP STA (02:47)
--- NOTE | 2020-08-05 03:11 | ED ---
Headache HPI - General Chief Complaint: Headache Stated Complaint: Migraine Time Seen by Provider: 08/05/20 02:38 Mode of arrival: ambulatory Limitations: no limitations - History of Present Illness Initial Comments: This patient is 24-year-old woman here with what she is describing his migraine headache. She states it is typical of her migraines other than the fact that it is been going on a bit longer than usual. Otherwise feels similar. She states that she gets her neurologic care from Dr. Arciniega, affiliated with [facility]. She did have CT scan within the past year. She is due to follow up with him within the coming month. MD Complaint: "migraine" Onset/Timin -: days(s) Onset Description: gradual Location: diffuse Severity: severe Quality: aching Consistency: constant Improves With: nothing Worsens With: light, noise Context: occurred at rest Associated Symptoms: photophobia, sensitivity to sound Treatments Prior to Arrival: migraine medication - Related Data Home Medications Medication Instructions Recorded Confirmed Eletriptan HBr [Relpax] 40 mg PO DAILY PRN 05/19/20 08/04/20 Escitalopram [Lexapro] 20 mg PO HS 05/19/20 08/04/20 Propranolol HCl 10 mg PO BID 05/19/20 08/04/20 busPIRone HCl [Buspar] 10 mg PO BID 05/19/20 08/04/20 Allergies Allergy/AdvReac Type Severity Reaction Status Date / Time clarithromycin [From Biaxin] AdvReac Vomiting Verified 08/04/20 23:38 Review of Systems ROS Statement: Those systems with pertinent positive or pertinent negative responses have been documented in the HPI. ROS Other: All systems not noted in ROS Statement are negative. Constitutional: Denies: fever, chills, weakness Eyes: Denies: eye pain, vision change ENT: Denies: ear pain, hearing loss Respiratory: Denies: cough, dyspnea Cardiovascular: Denies: chest pain, syncope Gastrointestinal: Denies: abdominal pain, nausea, vomiting Musculoskeletal: Denies: back pain Skin: Denies: rash Neurological: Reports: headache. Denies: weakness, numbness, paresthesias, confusion Past Medical History Past Medical History: Asthma Additional Past Medical History / Comment(s): ovarian cysts, migraine History of Any Multi-Drug Resistant Organisms: None Reported Past Surgical History: Appendectomy Past Psychological History: Anxiety, Depression Smoking Status: Never smoker Past Alcohol Use History: Occasional Past Drug Use History: None Reported General Exam Limitations: no limitations General appearance: alert, in no apparent distress Head exam: Present: atraumatic, normocephalic Eye exam: Present: normal appearance, PERRL, EOMI. Absent: scleral icterus, conjunctival injection ENT exam: Present: normal oropharynx Neck exam: Present: normal inspection, full ROM. Absent: tenderness, meningismus Respiratory exam: Present: normal lung sounds bilaterally. Absent: respiratory distress, wheezes, rales, rhonchi, stridor Cardiovascular Exam: Present: regular rate, normal rhythm, normal heart sounds. Absent: systolic murmur, diastolic murmur, rubs, gallop Neurological exam: Present: alert, oriented X3, CN II-XII intact. Absent: motor sensory deficit Skin exam: Present: warm, dry, intact, normal color. Absent: rash Course Vital Signs 08/04/20 23:34 Temperature 98.9 F Pulse Rate 78 Respiratory 18 Rate Blood Pressure 150/92 O2 Sat by Pulse 99 Oximetry Medical Decision Making - Medical Decision Making Patient is 24-year-old woman with history of migraines who presents with headache. I did discuss with patient concern of tumor cerebri. She states she is following with her neurologist and we will discuss with him. She does not want to have lumbar puncture here. She states she will see him about having MRI. - Lab Data Lab Results 08/04/20 Range/Units 23:45 Urine HCG, Qual Not Detected (Not Detectd) Disposition Clinical Impression: Headache Disposition: HOME SELF-CARE Condition: Good Instructions (If sedation given, give patient instructions): Acute Headache (ED) Additional Instructions: As we discussed, when you follow-up with your neurologist, discussed the possibility of pseudotumor cerebri. Is patient prescribed a controlled substance at d/c from ED?: No Referrals: Allegra Moe MD [Primary Care Provider] - 1-2 days
[2020-08-05 04:18] VITALS: BP 123/75; PULSE 84
== END 2020-08-05 04:19 | disposition home or self-care (01) ==
LOC: EC 22:56
DX: G43.909 Migraine, unspecified, not intractable, without status migrainosus (principal); J45.909 Unspecified asthma, uncomplicated; F41.9 Anxiety disorder, unspecified; F32.9 Major depressive disorder, single episode, unspecified
CPT/HCPCS: 81025; 99283; 96374; 96375 ×2; 96361; J1200; J2765; J1885

== ENCOUNTER → 2020-09-17 | Outpatient (CLI) | payer OTHER ==
--- NOTE | 2020-09-18 05:03 | MR ---
EXAMINATION TYPE: MR brain wo con DATE OF EXAM: 09/17/2020 COMPARISON: None HISTORY: Worsening headaches, blurry vision. Multiplanar multiecho imaging of the brain was performed without contrast. Ventricles have normal siz e. There is no mass effect nor midline shift. There is no sign of intracranial hemorrhage. Diffusion images show no evidence of an acute infarct. Brainstem is intact. There is no evidence of a posterior fossa mass. There is minimal mucosal thickening in the maxillary sinuses. Corpus callosum appears normal. Brainstem is intact. Sella turcica appears normal. IMPRESSION: Normal MR scan of the brain. Mild maxillary sinusitis.
--- NOTE | 2020-09-18 05:06 | MR ---
EXAMINATION TYPE: MR angio head wo con DATE OF EXAM: 09/17/2020 COMPARISON: None HISTORY: Worsening headaches, blurry vision. MR angiographic images were obtained of the intracerebral arterial circulation. There is arterial flow in the anterior middle and posterior cerebral arteries. There is arterial flow in the vertebrobasilar artery system. There are small posterior communicating arteries. There is no mass effect. I see no intracranial aneurysm or neovascularity. There is no evidence of hemodynamic stenosis. IMPRESSION: Normal MR angiogram of the brain.
== END | disposition home or self-care (01) ==
LOC: RADMRIMAIN 15:47
PROVIDERS: ATTEND Family Medicine
DX: J32.0 Chronic maxillary sinusitis (principal); H53.8 Other visual disturbances
CPT/HCPCS: 70544; 70551

== ENCOUNTER 2020-11-16 01:30 | Emergency (ER) | payer OTHER ==
[2020-11-16 01:37] VITALS: BP 152/92; PULSE 98; RESP 18; TEMP 98.5
[2020-11-16] MEDS ORDERED: MORPHINE SULFATE 4 MG/ML SYRINGE IM STA (01:41)
--- NOTE | 2020-11-16 02:05 | ED ---
General Adult HPI - General Chief complaint: Extremity Injury, Lower Stated complaint: LT leg injury Time Seen by Provider: 11/16/20 01:38 Source: patient, RN notes reviewed Mode of arrival: wheelchair Limitations: no limitations - History of Present Illness Initial comments: Patient is a 24-year-old female that presents to the emergency department comp laining of left foot ankle and lower leg pain. She notes that she was walking through her yard in the dark when she stepped in a hole that her dog dug reach she notes that she has significant 10 out of 10 pain in her left lower extremity with no relief from at home medications. She notes she does have full sensation and feeling in her left lower extremity. She notes that her left foot is painfu l to move. She denied any other issues or complaints at this time. She denied any chest pain shortness of breath headache nausea vomiting diarrhea constipation fever fatigue chills. - Related Data Home Medications Medication Instructions Recorded Confirmed Eletriptan HBr [Relpax] 40 mg PO DAILY PRN 05/19/20 08/04/20 Escitalopram [Lexapro] 20 mg PO HS 05/19/20 08/04/20 Propranolol HCl 10 mg PO BID 05/19/20 08/04/20 busPIRone HCl [Buspar] 10 mg PO BID 05/19/20 08/04/20 Previous Rx's Medication Instructions Recorded Ibuprofen [Motrin] 800 mg PO Q6HR #30 tab 11/16/20 Allergies Allergy/AdvReac Type Severity Reaction Status Date / Time clarithromycin [From Biaxin] AdvReac Vomiting Verified 11/16/20 01:37 Review of Systems ROS Statement: Those systems with pertinent positive or pertinent negative responses have been documented in the HPI. ROS Other: All systems not noted in ROS Statement are negative. Past Medical History Past Medical History: Asthma Additional Past Medical History / Comment(s): ovarian cysts, migraine History of Any Multi-Drug Resistant Organisms: None Reported Past Surgical History: Appendectomy Past Psychological History: Anxiety, Depression Smoking Status: Never smoker Past Alcohol Use History: Occasional Past Drug Use History: Marijuana General Exam Limitations: no limitations General appearance: alert, in no apparent distress, obese (Morbidly) Head exam: Present: atraumatic, normocephalic, normal inspection Eye exam: Present: normal appearance, PERRL, EOMI. Absent: scleral icterus, conjunctival injection, periorbital swelling Neck exam: Present: normal inspection Respiratory exam: Present: normal lung sounds bilaterally. Absent: respiratory distress, wheezes, rales, rhonchi, stridor Cardiovascular Exam: Present: regular rate, normal rhythm, normal heart sounds, other (Pulses 2+ bilaterally in lower extremities.). Absent: systolic murmur, diastolic murmur, rubs, gallop, clicks Extremities exam: Present: normal inspection, full ROM, normal capillary refill. Absent: tenderness, pedal edema, joint swelling, calf tenderness Left Lower Leg exam: Present: normal inspection, tenderness. Absent: swelling Ankle exam: Present: normal inspection, tenderness. Absent: full ROM (Secondary to pain), swelling Foot/Toe exam: Present: normal inspection, tenderness. Absent: full ROM (Secondary to pain), swelling Neurological exam: Present: alert, oriented X3 Psychiatric exam: Present: normal affect, normal mood Skin exam: Present: warm, dry, intact, normal color. Absent: rash Course Vital Signs 11/16/20 01:35 Temperature 98.5 F Pulse Rate 98 Respiratory 18 Rate Blood Pressure 152/92 O2 Sat by Pulse 99 Oximetry Procedures - Orthopedic Splinting/Casting Injury #1 Side: left Lower Extremity Injury Location: ankle Lower Extremity Immobilizer: [employer] Medical Decision Making - Medical Decision Making 24-year-old female complaining of left lower extremity pain from the knee down after stepping in a hole in her yard and tripping. X-ray of the tib-fib, x-ray of the ankle, x-ray of the left foot ordered. 4 mg of morphine ordered for pain control. Imaging negative for any acute fractures or dislocations. Given negative imaging patient most likely has a left ankle sprain. Case discussed with Dr. Wild, patient can discharge home. - Radiology Data Radiology results: report reviewed, image reviewed Left ankle x-ray: No acute abnormality of the left ankle. Left foot x-ray: Calcaneal spurring. No fracture seen. Left tib-fib x-ray: Negative left tibia and fibula exam. Disposition Clinical Impression: Left ankle sprain Disposition: HOME SELF-CARE Condition: Stable Instructions (If sedation given, give patient instructions): Ankle Sprain (ED) Additional Instructions: Please return to the Emergency Department if symptoms worsen or any other concerns. Follow-up primary care in the next 1-2 days. Wear air splint throughout the day may take off to bathe. Take Tylenol and Motrin [id number] for pain control. Avoid any strenuous activity or excessive weightbearing of the left ankle for the next several days. Is patient prescribed a controlled substance at d/c from ED?: No Referrals: Allegra Moe MD [Primary Care Provider] - 1-2 days Time of Disposition: 02:15
--- NOTE | 2020-11-16 02:09 | XR ---
EXAMINATION TYPE: XR foot complete LT DATE OF EXAM: 11/16/2020 COMPARISON: NONE HISTORY: Pain. Trauma. TECHNIQUE: 3 views FINDINGS: There is soft tissue swelling of the forefoot. Metatarsals appear intact. I see no fracture nor dislocation. The toes appear intact. There is plantar calcaneal spurring. IMPRESSION: Calcaneal spurring. No fracture seen.
--- NOTE | 2020-11-16 02:10 | XR ---
EXAMINATION TYPE: XR ankle complete LT DATE OF EXAM: 11/16/2020 COMPARISON: NONE HISTORY: Pain. TECHNIQUE: 3 views FINDINGS: Ankle mortise is anatomic. I see no fracture nor dislocation. There is plantar calcaneal sp urring. IMPRESSION: No acute abnormality of the left ankle.
--- NOTE | 2020-11-16 02:12 | XR ---
EXAMINATION TYPE: XR tibia fibula LT DATE OF EXAM: 11/16/2020 COMPARISON: NONE HISTORY: Pain TECHNIQUE: 2 views FINDINGS: Tibia and fibula appear intact. I see no fracture nor dislocation. Joint spaces are normal. IMPRESSION: Negative left tibia and fibula exam.
== END 2020-11-16 02:49 | disposition home or self-care (01) ==
LOC: EC 01:30
DX: S93.402A Sprain of unspecified ligament of left ankle, initial encounter (principal); E66.01 Morbid (severe) obesity due to excess calories; J45.909 Unspecified asthma, uncomplicated; F32.9 Major depressive disorder, single episode, unspecified; F41.9 Anxiety disorder, unspecified; F12.90 Cannabis use, unspecified, uncomplicated; Z79.899 Other long term (current) drug therapy; Z68.44 Body mass index [BMI] 60.0-69.9, adult; X50.1XXA Overexertion from prolonged static or awkward postures, initial encounter; Y92.096 Garden or yard of other non-institutional residence as the place of occurrence of the external cause; Y93.01 Activity, walking, marching and hiking
CPT/HCPCS: 73590; 73610; 73630; 96372; 99283; J2270

== ENCOUNTER 2021-02-06 22:43 | Emergency (ER) | payer OTHER ==
[2021-02-06] MEDS ORDERED: LORazepam 1 MG TAB PO STA (23:16)
[2021-02-06] MEDS ORDERED: LORazepam 2 MG/ML INJ IM STA (23:53)
[2021-02-07 00:18] VITALS: RESP 18
[2021-02-07 00:23] LABS: Basophils % (A) 0 %; Eosinophils # (A) 0.2 k/uL (0-0.7); Eosinophils % (A) 2 %; HCT 42.5 % (34.0-46.0); HGB 13.7 gm/dL (11.4-16.0); Lymphocytes # (A) 3.1 k/uL (1.0-4.8); Lymphocytes % (A) 25 %; MCH 27.8 pg (25.0-35.0); MCHC 32.1 g/dL (31.0-37.0); MCV 86.5 fL (80.0-100.0); Mean Platelet Volume 8.3; Monocytes # (A) 0.3 k/uL (0-1.0); Monocytes % (A) 3 %; Neutrophils # (A) 8.6 k/uL (1.3-7.7); Neutrophils % (A) 69 %; Platelet Count 269 k/uL (150-450); RBC 4.91 m/uL (3.80-5.40); RDW 14.4 % (11.5-15.5); WBC 12.4 k/uL (3.8-10.6)
--- NOTE | 2021-02-07 00:29 | ED ---
Anxiety HPI - General Chief Complaint: Anxiety Stated Complaint: Seizure Time Seen by Provider: 02/06/21 23:00 Source: patient, RN notes reviewed Mode of arrival: wheelchair - History of Present Illness Initial Comments: Patient is a 25-year-old female that presents to emergency room with her boyfriend saying that she thinks she is having an anxiety attack. Liver notes the patient does takes several medications at home but is unsure which when she takes for her anxiety. Patient seemed to be out of it on initial exam and was a poor historian. Boyfriend noted that mom is on her way up and has a better medical history. Patient was otherwise well-appearing in no pain while laying in bed. She denied any chest pain shortness breath headache nausea vomiting diarrhea constipation fever fatigue chills. - Related Data Home Medications: Home Medications Medication Instructions Recorded Confirmed Eletriptan HBr [Relpax] 40 mg PO DAILY PRN 05/19/20 08/04/20 Escitalopram [Lexapro] 20 mg PO HS 05/19/20 08/04/20 Propranolol HCl 10 mg PO BID 05/19/20 08/04/20 busPIRone HCl [Buspar] 10 mg PO BID 05/19/20 08/04/20 Previous Rx's Medication Instructions Recorded Ibuprofen [Motrin] 800 mg PO Q6HR #30 tab 11/16/20 Allergies/Adverse Reactions: Allergies Allergy/AdvReac Type Severity Reaction Status Date / Time clarithromycin [From Biaxin] AdvReac Vomiting Verified 02/06/21 22:49 Review of Systems ROS Statement: Those systems with pertinent positive or pertinent negative responses have been documented in the HPI. ROS Other: All systems not noted in ROS Statement are negative. Past Medical History Past Medical History: Asthma Additional Past Medical History / Comment(s): ovarian cysts, migraine History of Any Multi-Drug Resistant Organisms: None Reported Past Surgical History: Appendectomy Past Psychological History: Anxiety, Depression Smoking Status: Never smoker Past Alcohol Use History: Occasional Past Drug Use History: Marijuana General Exam Limitations: no limitations General appearance: alert, in no apparent distress, obese (Morbidly), other (Patient witnessed to be shaking in bed, alert and oriented immediately after to person place and time.) Head exam: Present: atraumatic, normocephalic, normal inspection Eye exam: Present: normal appearance, PERRL, EOMI. Absent: scleral icterus, conjunctival injection, periorbital swelling ENT exam: Present: normal exam, mucous membranes moist Neck exam: Present: normal inspection Respiratory exam: Present: normal lung sounds bilaterally. Absent: respiratory distress, wheezes, rales, rhonchi, stridor Cardiovascular Exam: Present: regular rate, normal rhythm, normal heart sounds. Absent: systolic murmur, diastolic murmur, rubs, gallop, clicks GI/Abdominal exam: Present: soft, normal bowel sounds. Absent: distended, tenderness, guarding, rebound, rigid Extremities exam: Present: normal inspection, full ROM, normal capillary refill. Absent: tenderness, pedal edema, joint swelling, calf tenderness Neurological exam: Present: alert, oriented X3 Psychiatric exam: Present: normal affect, normal mood Skin exam: Present: warm, dry, intact, normal color. Absent: rash Course Vital Signs 02/06/21 02/06/21 02/06/21 22:49 23:25 23:30 Temperature 96.9 F L Pulse Rate 126 H 128 H Respiratory 18 20 18 Rate Blood Pressure 146/76 136/106 O2 Sat by Pulse 100 98 Oximetry 02/07/21 00:10 Temperature Pulse Rate 99 Respiratory 18 Rate Blood Pressure 141/77 O2 Sat by Pulse 99 Oximetry Medical Decision Making - Medical Decision Making 25 she'll female complaining of possibly having an anxiety attack. 1 mg Ativan, EKG ordered. Upon reevaluation patient didn't appear to be shaking in bed, no postictal state immediately was able to answer person place and time questions correctly. Mom states the patient does have a history of pseudotumor cerebri and follows up with a neurologist at [facility]. Mom was informed that the Ativan should work for any possible seizure and/or anxiety. At this point patient stop shaking and return back to baseline. Basic labs ordered. Labs: Unremarkable. Patient most likely strength anxiety attack. Case discussed with Dr. Verdugo, patient discharge home with follow-up to primary care. - Lab Data Result diagrams: 02/07/21 00:00 02/07/21 00:12 Lab Results 02/07/21 02/07/21 Range/Units 00:00 00:12 WBC 12.4 H (3.8-10.6) k/uL RBC 4.91 (3.80-5.40) m/uL Hgb 13.7 (11.4-16.0) gm/dL Hct 42.5 (34.0-46.0) % MCV 86.5 (80.0-100.0) fL MCH 27.8 (25.0-35.0) pg MCHC 32.1 (31.0-37.0) g/dL RDW 14.4 (11.5-15.5) % Plt Count 269 (150-450) k/uL MPV 8.3 Neutrophils % 69 % Lymphocytes % 25 % Monocytes % 3 % Eosinophils % 2 % Basophils % 0 % Neutrophils # 8.6 H (1.3-7.7) k/uL Lymphocytes # 3.1 (1.0-4.8) k/uL Monocytes # 0.3 (0-1.0) k/uL Eosinophils # 0.2 (0-0.7) k/uL Basophils # 0.0 (0-0.2) k/uL Sodium 137 (137-145) mmol/L Potassium 4.0 (3.5-5.1) mmol/L Chloride 104 (98-107) mmol/L Carbon Dioxide 24 (22-30) mmol/L Anion Gap 9 mmol/L BUN 15 (7-17) mg/dL Creatinine 0.68 (0.52-1.04) mg/dL Est GFR (CKD-EPI)AfAm >90 (>60 ml/min/1.73 sqM) Est GFR (CKD-EPI)NonAf >90 (>60 ml/min/1.73 sqM) Glucose 141 H (74-99) mg/dL Calcium 9.4 (8.4-10.2) mg/dL Total Bilirubin 0.2 (0.2-1.3) mg/dL AST 26 (14-36) U/L ALT 35 H (4-34) U/L Alkaline Phosphatase 70 (38-126) U/L Total Protein 7.7 (6.3-8.2) g/dL Albumin 4.3 (3.5-5.0) g/dL - EKG Data -: EKG Interpreted by Hi EKG shows normal: sinus rhythm Rate: normal EKG Comments: Ventricular 104 bpm, MI interval 134 ms, QRS duration 82 ms, QTC 444 ms, PRT axes 46/44/43 sinus tachycardia, otherwise normal ECG. Disposition Clinical Impression: Acute anxiety, Pseudoseizure Disposition: HOME SELF-CARE Condition: Stable Instructions (If sedation given, give patient instructions): Generalized Anxiety Disorder (ED) Additional Instructions: Please return to the Emergency Department if symptoms worsen or any other concerns. Follow-up with primary care 1-2 days. Continue take at home medications as prescribed. Is patient prescribed a controlled substance at d/c from ED?: No Referrals: Allegra Moe MD [Primary Care Provider] - 1-2 days Time of Disposition: 00:50
[2021-02-07 00:34] LABS: ALT 35 U/L (4-34); AST 26 U/L (14-36); African American GFR (CKD) >90 (>60 ml/min/1.73 sqM); Albumin 4.3 g/dL (3.5-5.0); Alkaline Phosphatase 70 U/L (38-126); Anion Gap 9 mmol/L; Blood Urea Nitrogen 15 mg/dL (7-17); Calcium 9.4 mg/dL (8.4-10.2); Carbon Dioxide 24 mmol/L (22-30); Chloride 104 mmol/L (98-107); Glucose 141 mg/dL (74-99); Non-African American GFR(CKD) >90 (>60 ml/min/1.73 sqM); Sodium 137 mmol/L (137-145); Total Bilirubin 0.2 mg/dL (0.2-1.3); Total Protein 7.7 g/dL (6.3-8.2)
[2021-02-07 01:27] VITALS: BP 138/88; PULSE 102; TEMP 98.9
== END 2021-02-07 01:12 | disposition home or self-care (01) ==
LOC: EC 22:43
DX: F41.9 Anxiety disorder, unspecified (principal); R56.9 Unspecified convulsions; J45.909 Unspecified asthma, uncomplicated; F32.9 Major depressive disorder, single episode, unspecified; F12.90 Cannabis use, unspecified, uncomplicated; Z88.1 Allergy status to other antibiotic agents; Z90.49 Acquired absence of other specified parts of digestive tract
CPT/HCPCS: 36415; 80053; 85025; 93005; 96372; 99283

== ENCOUNTER 2021-04-21 21:21 | Emergency (ER) | payer OTHER ==
[2021-04-21 21:34] VITALS: RESP 18
[2021-04-21] MEDS ORDERED: SODIUM CHLORIDE 0.9% 500 ML 500 ML IV STA (21:37)
--- NOTE | 2021-04-21 21:38 | ED ---
Seizure HPI - General Chief Complaint: Seizure Stated Complaint: seizure Time Seen by Provider: 04/21/21 21:25 Source: patient, EMS Mode of arrival: EMS Limitations: altered mental status - History of Present Illness Initial Comments: Patient is a 25-year-old woman who is brought here by ambulance to have evaluation after suspected seizure. When I interview the patient, she states that she had been with friends and they had smoked marijuana. She states that she felt floaty, like something wasn't right, and then the next thing she remembers is coming to consciousness in an ambulance. Patient realizes that she is at a hospital. She is denying physical complaints now other than feeling achy. MD Complaint: possible seizure -: minutes(s) Witnessed: yes - by bystander Place: other Possible Precipitating Event: other Associated Symptoms: denies other symptoms Treatments Prior to Arrival: none - Related Data Home Medications Medication Instructions Recorded Confirmed No Known Home Medications 04/21/21 04/21/21 Allergies Allergy/AdvReac Type Severity Reaction Status Date / Time clarithromycin [From Biaxin] AdvReac Vomiting Verified 04/21/21 21:39 Review of Systems ROS Statement: Those systems with pertinent positive or pertinent negative responses have been documented in the HPI. ROS Other: All systems not noted in ROS Statement are negative. Limitations: ROS unobtainable due to patients medical condition Constitutional: Denies: fever Respiratory: Denies: cough Cardiovascular: Denies: chest pain Gastrointestinal: Denies: abdominal pain, vomiting Musculoskeletal: Denies: back pain Neurological: Denies: headache Past Medical History Past Medical History: Asthma Additional Past Medical History / Comment(s): ovarian cysts, migraine History of Any Multi-Drug Resistant Organisms: None Reported Past Surgical History: Appendectomy Past Psychological History: Anxiety, Depression Smoking Status: Never smoker Past Alcohol Use History: Occasional Past Drug Use History: Marijuana General Exam Limitations: no limitations General appearance: alert, in no apparent distress Head exam: Present: atraumatic, normocephalic Eye exam: Present: normal appearance. Absent: scleral icterus, conjunctival injection Neck exam: Present: normal inspection Respiratory exam: Present: normal lung sounds bilaterally. Absent: respiratory distress, wheezes, rales, rhonchi, stridor Cardiovascular Exam: Present: regular rate, normal rhythm, normal heart sounds. Absent: systolic murmur, diastolic murmur, rubs, gallop GI/Abdominal exam: Present: soft. Absent: distended, tenderness, guarding, rebound, rigid Extremities exam: Present: normal inspection, normal capillary refill. Absent: pedal edema, calf tenderness Back exam: Present: normal inspection. Absent: CVA tenderness (R), CVA tenderness (L) Neurological exam: Present: alert, CN II-XII intact. Absent: oriented X3 (Patient is oriented to person and place but not able to state the date), motor sensory deficit Skin exam: Present: warm, dry, intact, normal color. Absent: rash Course Vital Signs 04/21/21 04/21/21 04/21/21 21:23 21:33 22:56 Temperature 97.8 F Pulse Rate 112 H 108 H 109 H Respiratory 18 18 18 Rate Blood Pressure 164/117 149/97 142/111 O2 Sat by Pulse 99 99 98 Oximetry Medical Decision Making - Lab Data Result diagrams: 04/21/21 21:43 04/21/21 21:43 Lab Results 04/21/21 04/21/21 04/21/21 Range/Units 21:43 21:43 21:43 WBC 15.9 H (3.8-10.6) k/uL RBC 4.84 (3.80-5.40) m/uL Hgb 13.3 (11.4-16.0) gm/dL Hct 42.1 (34.0-46.0) % MCV 87.0 (80.0-100.0) fL MCH 27.5 (25.0-35.0) pg MCHC 31.6 (31.0-37.0) g/dL RDW 14.5 (11.5-15.5) % Plt Count 279 (150-450) k/uL MPV 8.5 Neutrophils % 64 % Lymphocytes % 29 % Monocytes % 3 % Eosinophils % 2 % Basophils % 0 % Neutrophils # 10.1 H (1.3-7.7) k/uL Lymphocytes # 4.5 (1.0-4.8) k/uL Monocytes # 0.5 (0-1.0) k/uL Eosinophils # 0.4 (0-0.7) k/uL Basophils # 0.1 (0-0.2) k/uL Sodium (137-145) mmol/L Potassium (3.5-5.1) mmol/L Chloride (98-107) mmol/L Carbon Dioxide (22-30) mmol/L Anion Gap mmol/L BUN (7-17) mg/dL Creatinine (0.52-1.04) mg/dL Est GFR (CKD-EPI)AfAm (>60 ml/min/1.73 sqM) Est GFR (CKD-EPI)NonAf (>60 ml/min/1.73 sqM) Glucose (74-99) mg/dL Calcium (8.4-10.2) mg/dL Magnesium (1.6-2.3) mg/dL Total Bilirubin (0.2-1.3) mg/dL AST (14-36) U/L ALT (4-34) U/L Alkaline Phosphatase (38-126) U/L Total Protein (6.3-8.2) g/dL Albumin (3.5-5.0) g/dL Urine Color Yellow Urine Appearance Cloudy H (Clear) Urine pH 6.0 (5.0-8.0) Ur Specific [place] 1.026 (1.001-1.035) Urine Protein Trace H (Negative) Urine Glucose (UA) Negative (Negative) Urine Ketones Negative (Negative) Urine Blood Large H (Negative) Urine Nitrite Negative (Negative) Urine Bilirubin Negative (Negative) Urine Urobilinogen <2.0 (<2.0) mg/dL Ur Leukocyte Esterase Trace H (Negative) Urine RBC 6 H (0-5) /hpf Urine WBC 3 (0-5) /hpf Ur Squamous Epith Cells 2 (0-4) /hpf Urine Bacteria Rare H (None) /hpf Urine Mucus Rare H (None) /hpf Urine HCG, Qual Not Detected (Not Detectd) Urine Opiates Screen Not Detected (NotDetected) Ur Oxycodone Screen Not Detected (NotDetected) Urine Methadone Screen Not Detected (NotDetected) Ur Propoxyphene Screen Not Detected (NotDetected) Ur Barbiturates Screen Not Detected (NotDetected) U Tricyclic Antidepress Not Detected (NotDetected) Ur Phencyclidine Scrn Not Detected (NotDetected) Ur Amphetamines Screen Not Detected (NotDetected) U Methamphetamines Scrn Not Detected (NotDetected) U Benzodiazepines Scrn Not Detected (NotDetected) Urine Cocaine Screen Not Detected (NotDetected) U Marijuana (THC) Screen Detected H (NotDetected) Serum Alcohol mg/dL 04/21/21 04/21/21 Range/Units 21:43 21:43 WBC (3.8-10.6) k/uL RBC (3.80-5.40) m/uL Hgb (11.4-16.0) gm/dL Hct (34.0-46.0) % MCV (80.0-100.0) fL MCH (25.0-35.0) pg MCHC (31.0-37.0) g/dL RDW (11.5-15.5) % Plt Count (150-450) k/uL MPV Neutrophils % % Lymphocytes % % Monocytes % % Eosinophils % % Basophils % % Neutrophils # (1.3-7.7) k/uL Lymphocytes # (1.0-4.8) k/uL Monocytes # (0-1.0) k/uL Eosinophils # (0-0.7) k/uL Basophils # (0-0.2) k/uL Sodium 143 (137-145) mmol/L Potassium 4.2 (3.5-5.1) mmol/L Chloride 104 (98-107) mmol/L Carbon Dioxide 24 (22-30) mmol/L Anion Gap 15 mmol/L BUN 13 (7-17) mg/dL Creatinine 0.65 (0.52-1.04) mg/dL Est GFR (CKD-EPI)AfAm >90 (>60 ml/min/1.73 sqM) Est GFR (CKD-EPI)NonAf >90 (>60 ml/min/1.73 sqM) Glucose 121 H (74-99) mg/dL Calcium 9.7 (8.4-10.2) mg/dL Magnesium 2.0 (1.6-2.3) mg/dL Total Bilirubin 0.6 (0.2-1.3) mg/dL AST 36 (14-36) U/L ALT 33 (4-34) U/L Alkaline Phosphatase 71 (38-126) U/L Total Protein 8.4 H (6.3-8.2) g/dL Albumin 4.7 (3.5-5.0) g/dL Urine Color Urine Appearance (Clear) Urine pH (5.0-8.0) Ur Specific [place] (1.001-1.035) Urine Protein (Negative) Urine Glucose (UA) (Negative) Urine Ketones (Negative) Urine Blood (Negative) Urine Nitrite (Negative) Urine Bilirubin (Negative) Urine Urobilinogen (<2.0) mg/dL Ur Leukocyte Esterase (Negative) Urine RBC (0-5) /hpf Urine WBC (0-5) /hpf Ur Squamous Epith Cells (0-4) /hpf Urine Bacteria (None) /hpf Urine Mucus (None) /hpf Urine HCG, Qual (Not Detectd) Urine Opiates Screen (NotDetected) Ur Oxycodone Screen (NotDetected) Urine Methadone Screen (NotDetected) Ur Propoxyphene Screen (NotDetected) Ur Barbiturates Screen (NotDetected) U Tricyclic Antidepress (NotDetected) Ur Phencyclidine Scrn (NotDetected) Ur Amphetamines Screen (NotDetected) U Methamphetamines Scrn (NotDetected) U Benzodiazepines Scrn (NotDetected) Urine Cocaine Screen (NotDetected) U Marijuana (THC) Screen (NotDetected) Serum Alcohol <10 mg/dL - EKG Data -: EKG Interpreted by Pr EKG shows normal: sinus rhythm, axis (Normal), intervals (Normal), QRS complexes (Normal), ST-T waves (Normal) Rate: tachycardia (Rate 106 bpm) Disposition Clinical Impression: Generalized seizure Disposition: HOME SELF-CARE Condition: Good Instructions (If sedation given, give patient instructions): Seizure/Epilepsy Discharge Instructions & Follow-Up Is patient prescribed a controlled substance at d/c from ED?: No Referrals: Allegra Moe MD [Primary Care Provider] - 1-2 days Aki Farah MD [STAFF PHYSICIAN] - 1-2 days
[2021-04-21 21:54] LABS: Basophils # (A) 0.1 k/uL (0-0.2); Basophils % (A) 0 %; Eosinophils # (A) 0.4 k/uL (0-0.7); Eosinophils % (A) 2 %; HCT 42.1 % (34.0-46.0); HGB 13.3 gm/dL (11.4-16.0); Lymphocytes # (A) 4.5 k/uL (1.0-4.8); Lymphocytes % (A) 29 %; MCH 27.5 pg (25.0-35.0); MCHC 31.6 g/dL (31.0-37.0); Mean Platelet Volume 8.5; Monocytes # (A) 0.5 k/uL (0-1.0); Monocytes % (A) 3 %; Neutrophils # (A) 10.1 k/uL (1.3-7.7); Neutrophils % (A) 64 %; Platelet Count 279 k/uL (150-450); RBC 4.84 m/uL (3.80-5.40); RDW 14.5 % (11.5-15.5); WBC 15.9 k/uL (3.8-10.6)
[2021-04-21 22:03] LABS: ALT 33 U/L (4-34); AST 36 U/L (14-36); African American GFR (CKD) >90 (>60 ml/min/1.73 sqM); Albumin 4.7 g/dL (3.5-5.0); Alcohol <10 mg/dL; Alkaline Phosphatase 71 U/L (38-126); Anion Gap 15 mmol/L; Blood Urea Nitrogen 13 mg/dL (7-17); Calcium 9.7 mg/dL (8.4-10.2); Carbon Dioxide 24 mmol/L (22-30); Chloride 104 mmol/L (98-107); Glucose 121 mg/dL (74-99); Non-African American GFR(CKD) >90 (>60 ml/min/1.73 sqM); Potassium 4.2 mmol/L (3.5-5.1); Sodium 143 mmol/L (137-145); Total Bilirubin 0.6 mg/dL (0.2-1.3); Total Protein 8.4 g/dL (6.3-8.2)
[2021-04-21 22:37] LABS: Appearance,Urine Cloudy (Clear); Bacteria,Urine Rare /hpf; Bilirubin,Urine Negative (Negative); Blood,Urine Large (Negative); Color,Urine Yellow; Glucose,Urine (UA) Negative (Negative); Ketones,Urine Negative (Negative); Leukocyte Esterase,Urine Trace (Negative); Mucus,Urine Rare /hpf; Nitrite,Urine Negative (Negative); Protein,Urine Trace (Negative); RBC,Urine 6 /hpf (0-5); Specific Gravity,Urine 1.026 (1.001-1.035); Squamous Epithelial Cell,Urine 2 /hpf (0-4); Urobilinogen,Urine <2.0 mg/dL (<2.0); WBC,Urine 3 /hpf (0-5)
[2021-04-21 22:49] LABS: Amphetamine Screen,Urine Not Detected (NotDetected); Barbiturate Screen,Urine Not Detected (NotDetected); Benzodiazepines Screen,Urine Not Detected (NotDetected); Cocaine Screen,Urine Not Detected (NotDetected); Methadone Screen, Urine Not Detected (NotDetected); Opiate Screen,Urine Not Detected (NotDetected); Oxycodone Screen, Urine Not Detected (NotDetected); Phencyclidine Screen,Urine Not Detected (NotDetected); Tricyclic Antidepressant,Urine Not Detected (NotDetected); Urn Cannabinoid Scrn Detected (NotDetected)
[2021-04-21 23:34] VITALS: BP 136/99; PULSE 105; TEMP 98.8
== END 2021-04-21 23:34 | disposition home or self-care (01) ==
LOC: EC 21:21
DX: R56.9 Unspecified convulsions (principal); J45.909 Unspecified asthma, uncomplicated; F12.90 Cannabis use, unspecified, uncomplicated
CPT/HCPCS: 36415; 93005; 80053; 83735; 85025; 81001; 81025; 80306; 99285; G0480; 80320

== ENCOUNTER 2021-05-08 13:00 | Emergency (ER) | payer OTHER ==
[2021-05-08 13:09] VITALS: RESP 20
[2021-05-08] MEDS ORDERED: ONDANSETRON 4 MG/2 ML VIAL IVP STA (13:54)
[2021-05-08] MEDS ORDERED: MORPHINE SULFATE 4 MG/ML SYRINGE IV STA (13:54)
[2021-05-08] MEDS ORDERED: SODIUM CHLORIDE 0.9% 1,000 ML IV STA (13:54)
[2021-05-08 14:38] LABS: Appearance,Urine Cloudy (Clear); Bilirubin,Urine Negative (Negative); Blood,Urine Negative (Negative); Color,Urine Yellow; Glucose,Urine (UA) Negative (Negative); Ketones,Urine 1+ (Negative); Leukocyte Esterase,Urine Trace (Negative); Mucus,Urine Many /hpf; Nitrite,Urine Negative (Negative); Protein,Urine Trace (Negative); RBC,Urine 1 /hpf (0-5); Specific Gravity,Urine 1.026 (1.001-1.035); Squamous Epithelial Cell,Urine 11 /hpf (0-4); Urobilinogen,Urine <2.0 mg/dL (<2.0); WBC,Urine 5 /hpf (0-5)
[2021-05-08 14:55] LABS: ALT 27 U/L (4-34); AST 36 U/L (14-36); African American GFR (CKD) >90 (>60 ml/min/1.73 sqM); Albumin 4.5 g/dL (3.5-5.0); Alkaline Phosphatase 50 U/L (38-126); Anion Gap 11 mmol/L; Blood Urea Nitrogen 8 mg/dL (7-17); Calcium 9.3 mg/dL (8.4-10.2); Carbon Dioxide 24 mmol/L (22-30); Chloride 105 mmol/L (98-107); Glucose 92 mg/dL (74-99); Lipase 64 U/L (23-300); Non-African American GFR(CKD) >90 (>60 ml/min/1.73 sqM); Sodium 140 mmol/L (137-145); Total Bilirubin 0.7 mg/dL (0.2-1.3); Total Protein 8.2 g/dL (6.3-8.2)
[2021-05-08 14:57] LABS: Potassium 4.4 mmol/L (3.5-5.1)
[2021-05-08 14:59] LABS: Basophils % (A) 0 %; Eosinophils # (A) 0.2 k/uL (0-0.7); Eosinophils % (A) 2 %; Hypochromasia Slight; Lymphocytes % (A) 29 %; MCH 27.8 pg (25.0-35.0); MCHC 31.9 g/dL (31.0-37.0); Monocytes # (A) 0.3 k/uL (0-1.0); Monocytes % (A) 3 %; Neutrophils # (A) 6.9 k/uL (1.3-7.7); Neutrophils % (A) 65 %; Platelet Count 280 k/uL (150-450); RBC 5.05 m/uL (3.80-5.40); RDW 14.5 % (11.5-15.5); WBC 10.5 k/uL (3.8-10.6)
--- NOTE | 2021-05-08 15:11 | ED ---
Abdominal Pain HPI - General Chief Complaint: Abdominal Pain Stated Complaint: Abdominal Pain Time Seen by Provider: 05/08/21 13:27 Source: patient Mode of arrival: ambulatory Limitations: no limitations - History of Present Illness Initial Comments: This 25-year-old female against the emergency department with right upper quadrant pain 2 days. Patient states she has had gallbladder issues in her past however she does still have her gallbladder and did not follow up when she had issues a couple years ago. Patient states yesterday she began having right upper quadrant pain and has been vomiting up all solids and most liquids today. Patient states she also has had a couple episodes of diarrhea today. Patient denies any chest pain, hemoptysis, fever, shortness of breath, change in bowel or bladder, headache, change in vision. - Related Data Previous Rx's Medication Instructions Recorded Metoclopramide [Reglan] 10 mg PO QID #16 tab 05/08/21 Allergies Allergy/AdvReac Type Severity Reaction Status Date / Time clarithromycin [From Biaxin] AdvReac Vomiting Verified 05/08/21 14:25 Review of Systems ROS Statement: Those systems with pertinent positive or pertinent negative responses have been documented in the HPI. ROS Other: All systems not noted in ROS Statement are negative. Past Medical History Past Medical History: Asthma, Seizure Disorder Additional Past Medical History / Comment(s): ovarian cysts, migraine History of Any Multi-Drug Resistant Organisms: None Reported Past Surgical History: Appendectomy Past Psychological History: Anxiety, Depression Smoking Status: Never smoker Past Alcohol Use History: None Reported, Occasional Past Drug Use History: Marijuana General Exam Limitations: no limitations General appearance: alert, in no apparent distress Head exam: Present: atraumatic, normocephalic Eye exam: Present: normal appearance, EOMI ENT exam: Present: normal exam, mucous membranes moist Neck exam: Present: normal inspection, full ROM Respiratory exam: Present: normal lung sounds bilaterally. Absent: respiratory distress, wheezes, rales, rhonchi, stridor Cardiovascular Exam: Present: regular rate, normal rhythm, normal heart sounds. Absent: systolic murmur, diastolic murmur, rubs, gallop, clicks GI/Abdominal exam: Present: soft, tenderness (Right upper quadrant tenderness. Positive Merchant sign), normal bowel sounds. Absent: distended, guarding, rebound, rigid Extremities exam: Present: full ROM. Absent: tenderness Back exam: Present: full ROM. Absent: tenderness, CVA tenderness (R), CVA tenderness (L) Neurological exam: Present: alert, oriented X3, CN II-XII intact Psychiatric exam: Present: normal affect, normal mood Skin exam: Present: warm, dry, intact, normal color. Absent: rash Course Vital Signs 05/08/21 13:04 Temperature 98.7 F Pulse Rate 85 Respiratory 20 Rate Blood Pressure 149/85 O2 Sat by Pulse 99 Oximetry - Reevaluation(s) Reevaluation #1: 05/08/21 17:16 After Zofran and pain medications, patient states her abdominal pain has resolved. Patient given crackers and water which she vomited up after a few minutes. Patient then given Reglan and states her nausea is better. After I then she was able to keep down water without feeling nauseous or vomiting. 05/08/21 17:39 Medical Decision Making - Medical Decision Making This 25-year-old female presents emergency Department with right upper quadrant pain. She has had gallbladder issues in her past but did not follow-up with her GI or primary care provider. All labs unremarkable. Urine hCG nondetected. Urine without nitrites or white blood cells. Trace urine leukocyte esterase. Gallbladder ultrasound impression: Suboptimal study without shadowing mobile gallstones or ultrasound evidence for acute cholecystitis. No biliary dilatation identified. No right-sided hydronephrosis seen. After pain medication, Zofran, and Reglan, patient states she does feel much better. Patient was able to keep down fluids without vomiting here in the ER. Patient was given Reglan for home. Patient to follow-up with surgeon, Dr. Jones in next 24-48 hours. Strict return precautions were discussed. Patient verbally agreed to plan. Patient sounded stable condition. - Lab Data Result diagrams: 05/08/21 14:36 05/08/21 14:36 Lab Results 05/08/21 05/08/21 05/08/21 Range/Units 14:17 14:17 14:36 WBC 10.5 (3.8-10.6) k/uL RBC 5.05 (3.80-5.40) m/uL Hgb 14.0 (11.4-16.0) gm/dL Hct 44.0 (34.0-46.0) % MCV 87.0 (80.0-100.0) fL MCH 27.8 (25.0-35.0) pg MCHC 31.9 (31.0-37.0) g/dL RDW 14.5 (11.5-15.5) % Plt Count 280 (150-450) k/uL MPV 9.0 Neutrophils % 65 % Lymphocytes % 29 % Monocytes % 3 % Eosinophils % 2 % Basophils % 0 % Neutrophils # 6.9 (1.3-7.7) k/uL Lymphocytes # 3.0 (1.0-4.8) k/uL Monocytes # 0.3 (0-1.0) k/uL Eosinophils # 0.2 (0-0.7) k/uL Basophils # 0.0 (0-0.2) k/uL Hypochromasia Slight Sodium (137-145) mmol/L Potassium (3.5-5.1) mmol/L Chloride (98-107) mmol/L Carbon Dioxide (22-30) mmol/L Anion Gap mmol/L BUN (7-17) mg/dL Creatinine (0.52-1.04) mg/dL Est GFR (CKD-EPI)AfAm (>60 ml/min/1.73 sqM) Est GFR (CKD-EPI)NonAf (>60 ml/min/1.73 sqM) Glucose (74-99) mg/dL Plasma Lactic Acid Raman (0.7-2.0) mmol/L Calcium (8.4-10.2) mg/dL Total Bilirubin (0.2-1.3) mg/dL AST (14-36) U/L ALT (4-34) U/L Alkaline Phosphatase (38-126) U/L Total Protein (6.3-8.2) g/dL Albumin (3.5-5.0) g/dL Lipase (23-300) U/L Urine Color Yellow Urine Appearance Cloudy H (Clear) Urine pH 7.0 (5.0-8.0) Ur Specific [place] 1.026 (1.001-1.035) Urine Protein Trace H (Negative) Urine Glucose (UA) Negative (Negative) Urine Ketones 1+ H (Negative) Urine Blood Negative (Negative) Urine Nitrite Negative (Negative) Urine Bilirubin Negative (Negative) Urine Urobilinogen <2.0 (<2.0) mg/dL Ur Leukocyte Esterase Trace H (Negative) Urine RBC 1 (0-5) /hpf Urine WBC 5 (0-5) /hpf Ur Squamous Epith Cells 11 H (0-4) /hpf Urine Mucus Many H (None) /hpf Urine HCG, Qual Not Detected (Not Detectd) 05/08/21 05/08/21 Range/Units 14:36 14:36 WBC (3.8-10.6) k/uL RBC (3.80-5.40) m/uL Hgb (11.4-16.0) gm/dL Hct (34.0-46.0) % MCV (80.0-100.0) fL MCH (25.0-35.0) pg MCHC (31.0-37.0) g/dL RDW (11.5-15.5) % Plt Count (150-450) k/uL MPV Neutrophils % % Lymphocytes % % Monocytes % % Eosinophils % % Basophils % % Neutrophils # (1.3-7.7) k/uL Lymphocytes # (1.0-4.8) k/uL Monocytes # (0-1.0) k/uL Eosinophils # (0-0.7) k/uL Basophils # (0-0.2) k/uL Hypochromasia Sodium 140 (137-145) mmol/L Potassium 4.4 (3.5-5.1) mmol/L Chloride 105 (98-107) mmol/L Carbon Dioxide 24 (22-30) mmol/L Anion Gap 11 mmol/L BUN 8 (7-17) mg/dL Creatinine 0.51 L (0.52-1.04) mg/dL Est GFR (CKD-EPI)AfAm >90 (>60 ml/min/1.73 sqM) Est GFR (CKD-EPI)NonAf >90 (>60 ml/min/1.73 sqM) Glucose 92 (74-99) mg/dL Plasma Lactic Acid Raman 0.9 (0.7-2.0) mmol/L Calcium 9.3 (8.4-10.2) mg/dL Total Bilirubin 0.7 (0.2-1.3) mg/dL AST 36 (14-36) U/L ALT 27 (4-34) U/L Alkaline Phosphatase 50 (38-126) U/L Total Protein 8.2 (6.3-8.2) g/dL Albumin 4.5 (3.5-5.0) g/dL Lipase 64 (23-300) U/L Urine Color Urine Appearance (Clear) Urine pH (5.0-8.0) Ur Specific [place] (1.001-1.035) Urine Protein (Negative) Urine Glucose (UA) (Negative) Urine Ketones (Negative) Urine Blood (Negative) Urine Nitrite (Negative) Urine Bilirubin (Negative) Urine Urobilinogen (<2.0) mg/dL Ur Leukocyte Esterase (Negative) Urine RBC (0-5) /hpf Urine WBC (0-5) /hpf Ur Squamous Epith Cells (0-4) /hpf Urine Mucus (None) /hpf Urine HCG, Qual (Not Detectd) Disposition Clinical Impression: Abdominal pain Disposition: HOME SELF-CARE Condition: Stable Instructions (If sedation given, give patient instructions): Abdominal Pain (ED) Additional Instructions: Please return to the emergency department if any concerning, new, or worsening symptoms present. Please follow-up with surgery in the next 24-48 hours. Take medications as directed. Prescriptions: Metoclopramide [Reglan] 10 mg PO QID #16 tab Is patient prescribed a controlled substance at d/c from ED?: No Referrals: Allegra Moe MD [Primary Care Provider] - 1-2 days Octavio Jones MD [STAFF PHYSICIAN] - 1-2 days Time of Disposition: 17:27
--- NOTE | 2021-05-08 15:34 | US ---
EXAMINATION TYPE: US gallbladder DATE OF EXAM: 05/08/2021 COMPARISON: CT abdomen and pelvis 2011 CLINICAL HISTORY: RUQ pain. RUQ pain, diarrhea, vomiting for 2 days EXAM MEASUREMENTS: Liver Length: 22.3 cm Gallbladder Wall: 0.3 cm CBD: 0.3 cm Right Kidney: 12.2 x 4.3 x 5.2 cm technical limitations due to patient's body habitus and large amount of overlying bowel Pancreas: Obscured by bowel gas Liver: enlarged, heterogeneous Gallbladder: no evidence of stones Evidence for sonographic Merchant's sign: NO CBD: appears wnl Right Kidney: no evidence of hydronephrosis Suboptimal evaluation of pancreas on the initial images. Visualized liver is heterogeneously hyperech oic. Evaluation for focal masses is suboptimal due to the heterogeneity. Gallbladder seen without sha dowing mobile gallstones. No biliary dilatation identified. No right-sided hydronephrosis seen. IMPRESSION: Suboptimal study without shadowing mobile gallstones or ultrasound evidence for acute cho lecystitis.
[2021-05-08] MEDS ORDERED: METOCLOPRAMIDE 5 MG/ML 2 ML VIAL IVP STA (16:14)
[2021-05-08 18:02] VITALS: BP 139/80; PULSE 82; TEMP 98.3
== END 2021-05-08 17:56 | disposition home or self-care (01) ==
LOC: EC 13:00
DX: R10.11 Right upper quadrant pain (principal); J45.909 Unspecified asthma, uncomplicated; F41.9 Anxiety disorder, unspecified; F32.A Depression, unspecified; F12.90 Cannabis use, unspecified, uncomplicated; Z90.49 Acquired absence of other specified parts of digestive tract
CPT/HCPCS: 99284; 96374; 96375 ×2; 36415; 80053; 83605; 83690; 85025; 81001; 81025; 76705; J2270; J2765; J2405

== ENCOUNTER → 2021-06-09 | Outpatient (CLI) | payer OTHER ==
--- NOTE | 2021-06-09 18:25 | NM ---
EXAMINATION TYPE: NM hepatobiliary w CCK DATE OF EXAM: 06/09/2021 COMPARISON: Ultrasound 05/14/2021 HISTORY: 25-year-old female K82.8 biliary dyskinesia. TECHNIQUE: After the intravenous administration of 4 mCi Tc 99m Mebrofenin hepatobiliary scintigraphy is performed. Immediate images post injection. FINDINGS: There is satisfactory initial accumulation of tracer by the liver. The gallbladder is visualized at the delayed 90 minute image. The small bowel activity is noted within 4 minutes. At 90 minutes CCK was administered, patient was injected with 1.95 mcg of Kinevac, and gallbladder ejection fraction is calculated at 90 %, elevated above the expected range (35-80%). IMPRESSION: 1. No scintigraphic evidence for acute/chronic cholecystitis or biliary dyskinesia. 2. Increased gallbladder ejection fraction at 90% may be seen with gallbladder hyperkinesis. Clinical ly correlate.
== END | disposition home or self-care (01) ==
LOC: RADNMMAIN 12:46
PROVIDERS: ATTEND Surgery
DX: K82.8 Other specified diseases of gallbladder (principal)
CPT/HCPCS: 78227; A9537; J2805

== ENCOUNTER 2021-06-19 06:52 | Day surgery (SDC) | payer OTHER ==
[2021-06-18 08:32] VITALS: BMI 61.3
[~2021-06-19 06:52] MED LIST: ACETAMINOPHEN TAB 500 MG TAB PO PRN; DEXAMETHASONE SOD PHOSPHATE 4 MG/ML 1 ML VIAL IV ONE; HEPARIN SODIUM,PORCINE/PF 5,000 UNIT/0.5 ML SYRINGE SQ PRN; LACTATED RINGERS 1,000 ML IV SCH; MIDAZOLAM 2 MG/2 ML VIAL IV PRN; ONDANSETRON 4 MG/2 ML VIAL IVP ONE; SCOPOLAMINE 1.5MG/72HR PATCH TRANSDERM ONE; ceFAZolin 3 GM in SODIUM CHLORIDE 0.9% 100 ML IVPB PRN
[2021-06-19] MEDS ORDERED: HYDROmorphone 0.5 MG/0.5 ML SYRINGE IVP PRN (07:00)
[2021-06-19] MEDS ORDERED: LACTATED RINGERS 1,000 ML IV ONE (07:10)
[2021-06-19] MEDS ORDERED: MIDAZOLAM 2 MG/2 ML VIAL ONE (08:29)
[2021-06-19] MEDS ORDERED: SUCCINYLCHOLINE CHLORIDE 100 MG/5 ML SYR IV ONE (08:29)
[2021-06-19] MEDS ORDERED: LIDOCAINE 1% INJ 10MG/ML (20 ML MDV) ONE (08:29)
[2021-06-19] MEDS ORDERED: ROCURONIUM 10 MG/ML (5 ML VIAL) IV ONE (08:29)
[2021-06-19] MEDS ORDERED: fentaNYL (PF) 50 MCG/ML 2 ML AMP ONE (08:29)
[2021-06-19] MEDS ORDERED: NEOSTIGMINE 1 MG/ML 10 ML VIAL ONE (08:29)
[2021-06-19] MEDS ORDERED: PROPOFOL 10 MG/ML 20 ML VIAL IV ONE (08:29)
[2021-06-19] MEDS ORDERED: HYDROmorphone (PF) 1 MG/ML ONE (08:29)
[2021-06-19] MEDS ORDERED: PHENYLEPHRINE-0.9% NACL SYG 1,000 MCG/10 ML SYRINGE ONE (08:29)
[2021-06-19] MEDS ORDERED: KETOROLAC 15 MG/ML 1 ML VIAL ONE (08:29)
[2021-06-19] MEDS ORDERED: GLYCOPYRROLATE 0.2 MG/ML 2 ML VIAL ONE (08:29)
[2021-06-19] MEDS ORDERED: BUPIVACAIN-EPI 0.25%-1:200,000 30 ML VIAL SQ ONE (08:59)
--- NOTE | 2021-06-19 09:29 | P.GSHP ---
History of Present Illness H&P Date: 06/19/21 Chief Complaint: Right upper quadrant pain nausea This is a 25 she'll female who presents today for laparoscopic cholecystectomy. Patient's had complaints of right quadrant pain and nausea. Her HIDA scan shows an abnormal ejection fraction. She presents today for laparoscopic cholecystectomy. Past Medical History Past Medical History: Asthma, Seizure Disorder Additional Past Medical History / Comment(s): LAST SEIZURE 05/19/21, NO MEDS, STILL WORKING ON A DIAGNOSIS History of Any Multi-Drug Resistant Organisms: None Reported Past Surgical History: Appendectomy Past Anesthesia/Blood Transfusion Reactions: No Reported Reaction Past Psychological History: Anxiety, Depression Smoking Status: Never smoker Past Alcohol Use History: Occasional Past Drug Use History: Marijuana - Past Family History Father Family Medical History: Cancer Additional Family Medical History / Comment(s): LEUKEMIA Medications and Allergies Home Medications Medication Instructions Recorded Confirmed Type No Known Home Medications 06/18/21 06/18/21 History Allergies Allergy/AdvReac Type Severity Reaction Status Date / Time clarithromycin [From Biaxin] AdvReac Vomiting Verified 06/18/21 08:24 Surgical - Exam Vital Signs Temp Pulse Resp BP Pulse Ox 97.5 F L 87 18 147/67 97 06/19/21 07:10 06/19/21 07:10 06/19/21 07:10 06/19/21 07:10 06/19/21 07:10 Morbid obesity, BMI 62 - General well developed, well nourished, no distress - Eyes PERRL - ENT normal pinna - Neck no masses - Respiratory normal expansion - Cardiovascular Rhythm: regular - Abdomen Abdomen: soft, non tender Assessment and Plan Plan: Chronic cholecystitis Morbid obesity We'll perform laparoscopically cholecystectomy. I did discuss the patient that her extreme obesity may cause constipation such as DVT blood clots pulmonary most. Patient will receive Lovenox for DVT prophylaxis. His been instructed be active in the postoperative period
--- NOTE | 2021-06-19 09:30 | P.OP ---
Date of Procedure: 06/19/21 Preoperative Diagnosis: Chronic cholecystitis Postoperative Diagnosis: Chronic cholecystitis Procedure(s) Performed: Laparoscopic cholecystectomy Anesthesia: LAVON Surgeon: Octavio Jones Pathology: other (Gallbladder) Condition: stable Disposition: PACU Description of Procedure: The patient was placed on the operating table. The patient received a general endotracheal tube anesthesia. The patients abdomen was prepped and draped in the usual sterile fashion. Through an infraumbilical stab incision, the fascia of the anterior abdominal wall was grasped with a pair of Kochers and then the Veress needle was placed in the peritoneal cavity. Position of the Veress needle was confirmed with positive drop test. The abdomen was then insufflated. After adequate insufflation, the 10 mm trocar was placed in the peritoneal cavity. Following this the laparoscope was placed in the per itoneal cavity. The patient was placed in the head-up, right side up position and then a 5 mm trocar was placed in the right lateral and right subcostal position under direct visualization. A 8 mm trocar was placed in the epigastric position. The gallbladder was grasped in the fundus and infundibulum. Traction on the gallbladder was placed in the lateral and the cephalad positions. The triangle of Calot was visualized.. The cystic duct was bluntly dissected until the union of the cystic duct and common bile duct was seen. A critical view of safety was achieved. The cystic duct was then divided and sealed with the Harmonic scissors. A PDS Endoloop was then placed throughout the cystic duct stump. The cystic artery divided and sealed with the Harmonic scissors. The gallbladder was then removed from the liver bed using Harmonic scissors. The gallbladder was then extracted through the epigastric port site. Operative field was checked for any bleeding spots and Harmonic scissors was used to coagulate the liver bed. The abdomen was irrigated. The trocars were removed. The skin was closed using interrupted 3-0 Vicryl suture. Dermabond dressing were applied. The patient tolerated the procedure well.
[2021-06-19 09:37] VITALS: TEMP 97.2
[2021-06-19 10:19] VITALS: RESP 16
[2021-06-19 10:43] VITALS: BP 126/86; PULSE 74
[2021-06-19] MEDS ORDERED: IV FLUID CONTINUATION 1,000 ML IV ONE (10:52)
== END 2021-06-19 11:06 | disposition home or self-care (01) ==
LOC: OR 06:52
PROVIDERS: ATTEND Surgery
DX: K81.1 Chronic cholecystitis (principal); K21.9 Gastro-esophageal reflux disease without esophagitis; J45.909 Unspecified asthma, uncomplicated; G40.909 Epilepsy, unspecified, not intractable, without status epilepticus; Z90.49 Acquired absence of other specified parts of digestive tract; F41.9 Anxiety disorder, unspecified; F32.A Depression, unspecified; Z80.6 Family history of leukemia; R73.03 Prediabetes; E66.01 Morbid (severe) obesity due to excess calories; Z68.44 Body mass index [BMI] 60.0-69.9, adult; Z88.1 Allergy status to other antibiotic agents
CPT/HCPCS: 81025; 88304; 47562; J2250; J1100; J2710; J0690; J2405; J2001; J3010; J1170 ×2; J1885; J2370; J0330; J2704; J1644

== ENCOUNTER 2021-10-26 13:25 | Emergency (ER) | payer OTHER ==
[2021-10-26 13:50] VITALS: TEMP 98.2
[2021-10-26] MEDS ORDERED: KETOROLAC 15 MG/ML 1 ML VIAL IVP STA (16:17)
--- NOTE | 2021-10-26 16:19 | ED ---
General Adult HPI - General Chief complaint: Chest Pain Stated complaint: Chest pain,R shoulder/jaw pain Time Seen by Provider: 10/26/21 15:45 Source: patient, RN notes reviewed, old records reviewed Mode of arrival: ambulatory Limitations: no limitations - History of Present Illness Initial comments: This is a 25-year-old female presents emergency Department complaining of right- sided chest pain. Patient states it's worse with deep breathing or palpation. Patient states she's been doing a lot of moving household items. Patient states she's not short of breath she has no anterior central chest pain patient denies any radiation of the pain. Patient denies any diaphoretic episodes. Patient states it's not worse with exertion only worse with deep breathing. Patient denies any nausea. Patient denies abdominal pain. Patient denies any blunt trauma. Patient denies any redness swelling or rashes and the area. - Related Data Home Medications Medication Instructions Recorded Confirmed Erenumab-Aooe [Aimovig 140 mg SQ Q30D 10/26/21 10/26/21 Autoinjector] Previous Rx's Medication Instructions Recorded Ibuprofen [Motrin] 600 mg PO Q6HR PRN #20 tab 10/26/21 Allergies Allergy/AdvReac Type Severity Reaction Status Date / Time clarithromycin [From Biaxin] AdvReac Vomiting Verified 10/26/21 16:30 Review of Systems ROS Statement: Those systems with pertinent positive or pertinent negative responses have been documented in the HPI. ROS Other: All systems not noted in ROS Statement are negative. Past Medical History Past Medical History: Asthma, Seizure Disorder, Sleep Apnea/CPAP/BIPAP Additional Past Medical History / Comment(s): LAST SEIZURE 05/19/21, NO MEDS, STILL WORKING ON A DIAGNOSIS History of Any Multi-Drug Resistant Organisms: None Reported Past Surgical History: Appendectomy Past Anesthesia/Blood Transfusion Reactions: No Reported Reaction Past Psychological History: Anxiety, Depression Smoking Status: Never smoker Past Alcohol Use History: Occasional Past Drug Use History: Marijuana - Past Family History Father Family Medical History: Cancer Additional Family Medical History / Comment(s): LEUKEMIA General Exam - General Exam Comments Initial Comments: GENERAL: Patient is well-developed and well-nourished. Patient is nontoxic and well- hydrated and is in mild distress. ENT: Neck is soft and supple. No significant lymphadenopathy is noted. Oropharynx is clear. Moist mucous membranes. Neck has full range of motion without eliciting any pain. EYES: The sclera were anicteric and conjunctiva were pink and moist. Extraocular movements were intact and pupils were equal round and reactive to light. Eyelids were unremarkable. PULMONARY: Unlabored respirations. Good breath sounds bilaterally. No audible rales rhonchi or wheezing was noted. CARDIOVASCULAR: There is a regular rate and rhythm without any murmurs gallops or rubs. Chest pain is reproducible with palpation ABDOMEN: Soft and nontender with normal bowel sounds. Patient is morbidly obese SKIN: Skin is clear with no lesions or rashes and otherwise unremarkable. NEUROLOGIC: Patient is alert and oriented x3. Cranial nerves II through XII are grossly intact. Motor and sensory are also intact. Normal speech, volume and content. Symmetrical smile. MUSCULOSKELETAL: Normal extremities with adequate strength and full range of motion. No lower extremity swelling or edema. No calf tenderness. LYMPHATICS: No significant lymphadenopathy is noted PSYCHIATRIC: Normal psychiatric evaluation. Limitations: no limitations Course Vital Signs 10/26/21 10/26/21 13:44 15:39 Temperature 98.2 F Pulse Rate 90 76 Respiratory 22 20 Rate Blood Pressure 121/76 120/81 O2 Sat by Pulse 99 97 Oximetry Medical Decision Making - Medical Decision Making EKG shows sinus rhythm at 90 bpm OH interval 250 one QRS is 91 QT interval 348 QTC is 396. Patient's EKG shows no ST segment elevation or depression. Chest x-ray shows no acute abnormality. Toradol took away the patient's pain. Patient will follow-up with primary medical care doctor told me taking Motrin when necessary for pain if pain gets worse she has difficulty breathing or any new symptoms she'll return to the emergency department. Disposition Clinical Impression: Chest wall pain Disposition: HOME SELF-CARE Condition: Good Instructions (If sedation given, give patient instructions): Chest Wall Pain (ED) Prescriptions: Ibuprofen [Motrin] 600 mg PO Q6HR PRN #20 tab PRN Reason: For pain Is patient prescribed a controlled substance at d/c from ED?: No Referrals: Allegra Moe MD [Primary Care Provider] - 1-2 days Time of Disposition: 17:27
--- NOTE | 2021-10-26 16:39 | XR ---
EXAMINATION TYPE: XR chest 2V DATE OF EXAM: 10/26/2021 4:32 PM COMPARISON: Chest radiographs from 05/11/2017 TECHNIQUE: XR chest 2V Frontal and lateral views of the chest. CLINICAL INDICATION:Female, 25 years old with history of Difficulty breathing. FINDINGS: Lungs/Pleura: There is no evidence of pleural effusion, focal consolidation, or pneumothorax. Pulmonary vascularity: Unremarkable. Heart/mediastinum: Cardiomediastinal silhouette is unremarkable. Musculoskeletal: No acute osseous pathology. IMPRESSION: No acute cardiopulmonary disease/process.
[2021-10-26 17:44] VITALS: BP 122/78; PULSE 88; RESP 18
== END 2021-10-26 17:43 | disposition home or self-care (01) ==
LOC: EC 13:25
DX: R07.89 Other chest pain (principal); J45.909 Unspecified asthma, uncomplicated
CPT/HCPCS: 93005; 71046; 99285; 96374; J1885